=== PATIENT | male | born 1960 | race African-American/Black ===

== ENCOUNTER 2023-07-09 07:47 | Inpatient (IN) | payer BC ==
[~2023-07-09] VITALS: Ht 180.3 cm; Wt 102.4 kg
[2023-07-09] MEDS ORDERED: KETOROLAC TROMETH 30 MG/ML 1ML VIAL IV ONE (08:15)
[2023-07-09] MEDS ORDERED: ONDANSETRON HCL 4 MG/2 ML VIAL IV ONE (08:15)
[2023-07-09] MEDS ORDERED: DICYCLOMINE HCL (10MG/ML) 2 ML AMPULE IM ONE (08:15)
[2023-07-09] MEDS ORDERED: SODIUM CHLORIDE 0.9% 1,000 ML IV ONE ×2 (08:15→10:30)
[2023-07-09 08:38] LABS: Basophils # (auto) 0.1 10 ^3/uL (0-0.2); Basophils % (auto) 0.4 % (0.0-2.0); Eosinophils # (auto) 0 10 ^3/uL (0-0.8); Eosinophils % (auto) 0.3 % (0.0-7.0); Hemoglobin 14.8 g/dL (13.5-17.5); Lymphocytes # (auto) 1.8 10 ^3/uL (0.4-5.4); Lymphocytes % (auto) 12.6 % (10.0-50.0); Mean Corpuscular Hemoglobin 29.9 pg (28.0-32.0); Mean Corpuscular Hgb Conc. 33.6 g/dL (32.0-36.0); Mean Corpuscular Volume 89.1 fL (80.0-100.0); Monocytes # (auto) 0.8 10 ^3/uL (0-1.3); Monocytes % (auto) 5.8 % (0.0-12.0); Neutrophils # (auto) 11.4 10 ^3/uL (1.6-8.6); Neutrophils % (auto) 80.9 % (37.0-80.0); Nucleated Red Blood Cells % 0.1 %; Red Blood Cells 4.93 10^6/uL (4.5-5.90); Red Cell Distribution Width 13.6 % (11.8-14.3); White Blood Cell 14.1 10^3/uL (4.4-10.8)
[2023-07-09] MEDS ORDERED: PIPERACILLIN-TAZO 4.5GM 100 ML IV ONE (09:00)
[2023-07-09] MEDS ORDERED: metroNIDAZOLE 500MG/100ML 100 ML IV ONE (09:00)
[2023-07-09 09:04] LABS: Albumin 3.8 g/dL (3.4-5.0); Calcium 9.1 mg/dL (8.5-10.1); Magnesium 2.1 mg/dL (1.6-2.6); Potassium 4.1 mmol/L (3.5-5.1)
[2023-07-09 09:07] LABS: BUN/Creatinine Ratio 5.9 (10.0-20.0); Bilirubin, Total 0.8 mg/dL (0.2-1.0); Total Protein 7.3 g/dL (6.4-8.2)
[2023-07-09 09:12] LABS: Urine Bacteria NONE SEEN /hpf (None Seen); Urine Blood Negative /uL (Negative); Urine Clarity Clear (Clear); Urine Color Yellow (Yellow); Urine Mucus FEW (None Seen); Urine Protein, UAD TRACE (Negative); Urine Specific Gravity 1.025 (1.001-1.035); Urine WBC 1 /hpf (0 - 3)
[2023-07-09 09:43] VITALS: RESP 18; O2SAT 97
[2023-07-09] MEDS ORDERED: NITROGLYCERIN 0.4 MG SL TAB SL PRN (10:00)
[2023-07-09] MEDS ORDERED: MORPHINE SULFATE INJ 2 MG/ml SYRG IV PRN (10:00)
[2023-07-09] MEDS ORDERED: cefTRIAXone 1GM/50ML D5W 50 ML IV ONE (10:15)
[2023-07-09] MEDS ORDERED: SODIUM CHLORIDE 0.9% 1,000 ML IV SCH (10:30)
[2023-07-09] MEDS ORDERED: CEFEPIME 1GM/ 50ML 50 ML IV SCH (10:45)
[2023-07-09] MEDS ORDERED: CEFEPIME 1GM/ 50ML 50 ML IV ONE (10:45)
[2023-07-09] MEDS ORDERED: metroNIDAZOLE 500MG/100ML 100 ML IV SCH (10:45)
[2023-07-09 11:10] LABS: Alcohol, Urine < 3.0 mg/dL (0-10); Amphetamine Screen, Urine NEGATIVE (NEGATIVE); Barbiturate Scree,Urine NEGATIVE (NEGATIVE); Benzodiazephine Screen, Urine NEGATIVE (NEGATIVE); Cannabinoid Screen, Urine NEGATIVE (NEGATIVE); Cocaine Screen, Urine NEGATIVE (NEGATIVE); Opiate Scree,Urine NEGATIVE (NEGATIVE); Phencyclidine Screen, Urine NEGATIVE (NEGATIVE)
[2023-07-09 15:01] VITALS: PULSE 72; RESP 16; O2SAT 97
[2023-07-09] MEDS ORDERED: CELECOXIB 100 MG CAP ONE (16:08)
[2023-07-09] MEDS ORDERED: GABAPENTIN 300 MG CAP ONE (16:09)
[2023-07-09] MEDS ORDERED: ACETAMINOPHEN IV 100 ML IV ONE (16:09)
[2023-07-09] MEDS ORDERED: PROPOFOL 10 MG/ML 20 ML IV ONE (16:15)
[2023-07-09] MEDS ORDERED: ACETAMINOPHEN IV 1000 MG/100ML (10MG/ML) IV ONE (16:15)
[2023-07-09] MEDS ORDERED: GABAPENTIN 300 MG CAP PO ONE (16:15)
[2023-07-09] MEDS ORDERED: CELECOXIB 100 MG CAP PO ONE (16:15)
[2023-07-09] MEDS ORDERED: LIDOCAINE 2% (LOCAL ANESTH.) PF 5ml SDV ONE (16:16)
[2023-07-09] MEDS ORDERED: GLYCOPYRROLATE 0.2 MG/ML 1ML VIAL ONE (16:16)
[2023-07-09] MEDS ORDERED: KETOROLAC TROMETH 30 MG/ML 1ML VIAL ONE (16:16)
[2023-07-09] MEDS ORDERED: DexAMETHasone SOD PHOS 10MG/1ML VIAL INJ ONE ×2 (16:16→16:41)
[2023-07-09] MEDS ORDERED: ONDANSETRON HCL 4 MG/2 ML VIAL ONE (16:16)
[2023-07-09] MEDS ORDERED: BUPIVACAINE W/ EPINEPH 0.5% INJ 50ML MDV IJ ONE (16:20)
[2023-07-09] MEDS ORDERED: BUPIVACAINE HCL 50 ML ONE (16:20)
[2023-07-09] MEDS ORDERED: SODIUM CHLORIDE LOCK 30 ML ONE (16:52)
[2023-07-09] MEDS ORDERED: PHENYLEPHRINE HCL 10 MG/ML VL ONE (16:52)
[2023-07-09] MEDS ORDERED: fentaNYL CITRATE 100 MCG/2 ML VL ONE (17:27)
[2023-07-09] MEDS ORDERED: SUGAMMADEX 200mg/2ml Vial (100MG/ML) IV ONE (17:27)
[2023-07-09] MEDS ORDERED: ROCURONIUM 10MG/ML 10ML VIAL IV ONE (17:38)
[2023-07-09] MEDS ORDERED: ESMOLOL HCL 10 ML IV ONE (17:38)
[2023-07-09] MEDS ORDERED: hydrALAZINE HCL 20 MG/ML VL IV PRN (19:30)
[2023-07-09] MEDS ORDERED: LABETALOL HCL 5 MG/ML 4ML SYRINGE IV PRN (19:30)
[2023-07-09] MEDS ORDERED: ONDANSETRON HCL 4 MG/2 ML VIAL IV PRN (19:30)
[2023-07-09] MEDS ORDERED: oxyCODONE HCL 5MG TAB PO PRN (19:30)
[2023-07-09] MEDS ORDERED: HYDROmorphone HCL 2 MG/ML VL/or syr IV PRN (19:30)
[2023-07-09] MEDS ORDERED: fentaNYL CITRATE 100 MCG/2 ML VL IV PRN (19:30)
[2023-07-09] MEDS ORDERED: ePHEDrine SULFATE 50 MG/ML AMP IV PRN (19:30)
[2023-07-09] MEDS ORDERED: FLUMAZENIL 0.1 MG/ML INJ 10ML MDV IV PRN (19:30)
[2023-07-09] MEDS ORDERED: NALOXONE HCL 0.4 MG/ML VIAL IV PRN (19:30)
[2023-07-09 20:43] VITALS: BP 154/83; PULSE 85; RESP 19; TEMP 97.5; O2SAT 93
[2023-07-09] MEDS ORDERED: LOS25T (20:43)
[2023-07-09] MEDS ORDERED: FENO160T (20:43)
[2023-07-09] MEDS ORDERED: ASPI-325 (20:43)
[2023-07-09] MEDS ORDERED: METF-370 (20:43)
[2023-07-10 05:00] VITALS: BP 126/82; PULSE 90; RESP 18; TEMP 98; O2SAT 93
[2023-07-10 06:12] LABS: Basophils # (auto) 0 10 ^3/uL (0-0.2); Eosinophils # (auto) 0 10 ^3/uL (0-0.8); Hematocrit 40.2 % (41.0-53.0); Hemoglobin 13.5 g/dL (13.5-17.5); Mean Corpuscular Hemoglobin 29.9 pg (28.0-32.0); Mean Corpuscular Hgb Conc. 33.7 g/dL (32.0-36.0); Mean Corpuscular Volume 88.8 fL (80.0-100.0); Monocytes # (auto) 0.5 10 ^3/uL (0-1.3); Monocytes % (auto) 3.7 % (0.0-12.0); Neutrophils # (auto) 12.4 10 ^3/uL (1.6-8.6); Neutrophils % (auto) 89.3 % (37.0-80.0); Red Blood Cells 4.52 10^6/uL (4.5-5.90); Red Cell Distribution Width 13.6 % (11.8-14.3); White Blood Cell 13.9 10^3/uL (4.4-10.8)
[2023-07-10 06:41] LABS: Potassium 4.6 mmol/L (3.5-5.1)
[2023-07-10 06:46] LABS: Albumin 3.2 g/dL (3.4-5.0); BUN/Creatinine Ratio 8.9 (10.0-20.0); Calcium 8.4 mg/dL (8.7-10.4)
[2023-07-10 06:49] LABS: Total Protein 6.5 g/dL (6.4-8.2)
[2023-07-10] MEDS ORDERED: metroNIDAZOLE 500MG/100ML 100 ML IV ONE (08:00)
[2023-07-10] MEDS ORDERED: CEFEPIME 1GM/ 50ML 50 ML IV ONE (08:00)
[2023-07-10] MEDS ORDERED: DEXTROSE (50%) 50ML SYRG IV PRN (08:15)
[2023-07-10] MEDS ORDERED: metroNIDAZOLE 500MG/100ML 100 ML IV SCH (09:00)
[2023-07-10] MEDS ORDERED: cefTRIAXone 1GM/50ML D5W 50 ML IV SCH (09:00)
[2023-07-10 09:08] LABS: Bilirubin, Total 0.5 mg/dL (0.2-1.0)
[2023-07-10] MEDS: ACCU-CHEK COMFORT CURVE STRIP VI SCH ×2 (12:43→17:19)
[2023-07-10] MEDS: InsuLIN REG 1unit/0.01ml Soln (100units/ml) SC SCH ×3 (12:45→23:48)
[2023-07-10 13:00] VITALS: BP 117/71; PULSE 84; RESP 16; TEMP 98.8; O2SAT 95
[2023-07-10] MEDS: metroNIDAZOLE 500MG/100ML 100 ML IV SCH ×2 (15:00→21:19)
[2023-07-10 16:38] VITALS: BP 143/88; PULSE 83; RESP 18; TEMP 98.7; O2SAT 98
[2023-07-10] MEDS: HYDROmorphone HCL 2 MG/ML VL/or syr IV PRN (17:06)
[2023-07-10] MEDS: CEFEPIME 1GM/ 50ML 50 ML IV SCH (17:19)
[2023-07-10] MEDS: SODIUM CHLORIDE 0.9% 1,000 ML IV SCH (18:30)
[2023-07-10 20:17] VITALS: RESP 17
[2023-07-10 22:00] VITALS: BP 107/50; PULSE 82; RESP 17; TEMP 98.5; O2SAT 94
[2023-07-11] MEDS: ACCU-CHEK COMFORT CURVE STRIP VI SCH ×5 (00:04→23:26)
[2023-07-11] MEDS: CEFEPIME 1GM/ 50ML 50 ML IV SCH ×4 (00:04→23:24)
[2023-07-11] MEDS: metroNIDAZOLE 500MG/100ML 100 ML IV SCH ×3 (04:56→20:05)
[2023-07-11 05:00] VITALS: BP 119/71; PULSE 85; RESP 19; TEMP 98.8; O2SAT 98
[2023-07-11] MEDS: InsuLIN REG 1unit/0.01ml Soln (100units/ml) SC SCH ×3 (05:20→18:22)
[2023-07-11 05:59] LABS: Basophils # (auto) 0 10 ^3/uL (0-0.2); Basophils % (auto) 0.2 % (0.0-2.0); Eosinophils # (auto) 0 10 ^3/uL (0-0.8); Eosinophils % (auto) 0.2 % (0.0-7.0); Hematocrit 39.3 % (41.0-53.0); Hemoglobin 13.2 g/dL (13.5-17.5); Lymphocytes # (auto) 1.8 10 ^3/uL (0.4-5.4); Lymphocytes % (auto) 17.3 % (10.0-50.0); Mean Corpuscular Hgb Conc. 33.7 g/dL (32.0-36.0); Mean Corpuscular Volume 88.9 fL (80.0-100.0); Monocytes # (auto) 0.8 10 ^3/uL (0-1.3); Monocytes % (auto) 7.5 % (0.0-12.0); Neutrophils # (auto) 7.6 10 ^3/uL (1.6-8.6); Neutrophils % (auto) 74.8 % (37.0-80.0); Red Blood Cells 4.42 10^6/uL (4.5-5.90); Red Cell Distribution Width 13.5 % (11.8-14.3); White Blood Cell 10.2 10^3/uL (4.4-10.8)
[2023-07-11 06:26] LABS: Alanine Aminotransferase 23 U/L (7-40); Alkaline Phosphatase 47 U/L (46-116); Anion Gap 8.4 (5-15); BUN/Creatinine Ratio 12.2 (10.0-20.0); Blood Urea Nitrogen 14 mg/dL (9-23); Calcium 8.8 mg/dL (8.7-10.4); Carbon Dioxide 26.6 mmol/L (20-30); Chloride 102 mmol/L (98-107); Glucose 147 mg/dL (74-106); Potassium 3.9 mmol/L (3.5-5.1); Sodium 137 mmol/L (136-145)
[2023-07-11 06:27] LABS: Albumin 3.6 g/dL (3.2-4.8); Aspartate Aminotransferase 24 U/L (13-40); Bilirubin, Total 0.7 mg/dL (0.2-1.0); Total Protein 6.2 g/dL (5.7-8.2)
[2023-07-11] MEDS: SODIUM CHLORIDE 0.9% 1,000 ML IV SCH ×2 (07:50→20:05)
[2023-07-11 08:00] VITALS: PULSE 88; RESP 8
[2023-07-11] MEDS: HYDROmorphone HCL 2 MG/ML VL/or syr IV PRN ×4 (08:23→23:24)
[2023-07-11 09:00] VITALS: BP 122/60; PULSE 75; RESP 17; TEMP 98.2; O2SAT 92
[2023-07-11 13:00] VITALS: BP 125/77; PULSE 92; RESP 17; TEMP 98.8; O2SAT 99
[2023-07-11 17:00] VITALS: BP 135/77; PULSE 96; RESP 18; TEMP 99.4; O2SAT 97
[2023-07-11 22:00] VITALS: BP 156/87; PULSE 89; RESP 22; TEMP 97.6; O2SAT 98
[2023-07-12] MEDS: ONDANSETRON HCL 4 MG/2 ML VIAL IV PRN ×2 (00:41→20:18)
[2023-07-12] MEDS: InsuLIN REG 1unit/0.01ml Soln (100units/ml) SC SCH ×4 (00:44→17:45)
[2023-07-12 05:00] VITALS: BP 149/83; PULSE 94; RESP 20; TEMP 97.7; O2SAT 96
[2023-07-12] MEDS: ACCU-CHEK COMFORT CURVE STRIP VI SCH ×4 (05:09→23:57)
[2023-07-12] MEDS: metroNIDAZOLE 500MG/100ML 100 ML IV SCH ×3 (05:10→21:47)
[2023-07-12] MEDS: HYDROmorphone HCL 2 MG/ML VL/or syr IV PRN ×3 (06:08→20:18)
[2023-07-12 08:00] VITALS: BP 99/60; PULSE 80; PULSE 92; RESP 17; TEMP 98.8; O2SAT 98
[2023-07-12 08:08] LABS: Basophils # (auto) 0 10 ^3/uL (0-0.2); Basophils % (auto) 0.1 % (0.0-2.0); Eosinophils # (auto) 0.1 10 ^3/uL (0-0.8); Eosinophils % (auto) 0.5 % (0.0-7.0); Hematocrit 41.7 % (41.0-53.0); Hemoglobin 13.9 g/dL (13.5-17.5); Lymphocytes # (auto) 1.6 10 ^3/uL (0.4-5.4); Mean Corpuscular Hemoglobin 29.8 pg (28.0-32.0); Mean Corpuscular Hgb Conc. 33.3 g/dL (32.0-36.0); Mean Corpuscular Volume 89.7 fL (80.0-100.0); Monocytes # (auto) 1.1 10 ^3/uL (0-1.3); Monocytes % (auto) 10.5 % (0.0-12.0); Neutrophils # (auto) 7.5 10 ^3/uL (1.6-8.6); Neutrophils % (auto) 72.9 % (37.0-80.0); Nucleated Red Blood Cells % 0.1 %; Red Blood Cells 4.65 10^6/uL (4.5-5.90); Red Cell Distribution Width 13.5 % (11.8-14.3); White Blood Cell 10.3 10^3/uL (4.4-10.8)
[2023-07-12 08:38] LABS: Alanine Aminotransferase 17 U/L (7-40); Alkaline Phosphatase 46 U/L (46-116); Anion Gap 5.5 (5-15); Aspartate Aminotransferase 23 U/L (13-40); BUN/Creatinine Ratio 7.4 (10.0-20.0); Blood Urea Nitrogen 7 mg/dL (9-23); Calcium 8.7 mg/dL (8.5-10.1); Carbon Dioxide 27.5 mmol/L (20-30); Chloride 103 mmol/L (98-107); Glucose 130 mg/dL (74-106); Potassium 3.9 mmol/L (3.5-5.1); Sodium 136 mmol/L (136-145)
[2023-07-12 08:39] LABS: Albumin 3.6 g/dL (3.2-4.8); Bilirubin, Total 0.6 mg/dL (0.2-1.0); Total Protein 6.4 g/dL (5.7-8.2)
[2023-07-12] MEDS: CEFEPIME 1GM/ 50ML 50 ML IV SCH ×3 (09:37→17:40)
[2023-07-12] MEDS: SODIUM CHLORIDE 0.9% 1,000 ML IV SCH ×2 (10:30→23:57)
[2023-07-12 12:00] VITALS: BP 126/74; PULSE 93; RESP 20; TEMP 98; O2SAT 96
[2023-07-12 16:00] VITALS: BP 132/67; PULSE 77; RESP 21; TEMP 98.5; O2SAT 93
[2023-07-12 20:00] VITALS: PULSE 95; RESP 18
[2023-07-12 22:00] VITALS: BP 122/81; PULSE 100; RESP 19; TEMP 98.6; O2SAT 92
[2023-07-13] MEDS: CEFEPIME 1GM/ 50ML 50 ML IV SCH ×2 (00:02→09:24)
[2023-07-13] MEDS: InsuLIN REG 1unit/0.01ml Soln (100units/ml) SC SCH ×5 (00:21→23:37)
[2023-07-13 05:00] VITALS: BP 129/81; PULSE 92; RESP 19; TEMP 99; O2SAT 98
[2023-07-13] MEDS: metroNIDAZOLE 500MG/100ML 100 ML IV SCH (06:13)
[2023-07-13] MEDS: ACCU-CHEK COMFORT CURVE STRIP VI SCH ×4 (06:17→23:30)
[2023-07-13 06:42] LABS: Basophils # (auto) 0 10 ^3/uL (0-0.2); Basophils % (auto) 0.3 % (0.0-2.0); Eosinophils # (auto) 0.3 10 ^3/uL (0-0.8); Eosinophils % (auto) 3.5 % (0.0-7.0); Hematocrit 41.4 % (41.0-53.0); Hemoglobin 13.9 g/dL (13.5-17.5); Lymphocytes # (auto) 1.9 10 ^3/uL (0.4-5.4); Lymphocytes % (auto) 20.9 % (10.0-50.0); Mean Corpuscular Hemoglobin 30.3 pg (28.0-32.0); Mean Corpuscular Hgb Conc. 33.4 g/dL (32.0-36.0); Mean Corpuscular Volume 90.5 fL (80.0-100.0); Monocytes # (auto) 0.9 10 ^3/uL (0-1.3); Monocytes % (auto) 10.2 % (0.0-12.0); Neutrophils # (auto) 5.8 10 ^3/uL (1.6-8.6); Neutrophils % (auto) 65.1 % (37.0-80.0); Red Blood Cells 4.58 10^6/uL (4.5-5.90); Red Cell Distribution Width 13.4 % (11.8-14.3)
[2023-07-13 06:46] LABS: Alanine Aminotransferase 17 U/L (7-40); Albumin 3.6 g/dL (3.2-4.8); Alkaline Phosphatase 46 U/L (46-116); Anion Gap 7.1 (5-15); Aspartate Aminotransferase 19 U/L (13-40); BUN/Creatinine Ratio 7.3 (10.0-20.0); Bilirubin, Total 0.6 mg/dL (0.2-1.0); Blood Urea Nitrogen 7 mg/dL (9-23); Calcium 8.7 mg/dL (8.5-10.1); Carbon Dioxide 27.9 mmol/L (20-30); Chloride 102 mmol/L (98-107); Glucose 126 mg/dL (74-106); Potassium 3.7 mmol/L (3.5-5.1); Sodium 137 mmol/L (136-145); Total Protein 6.5 g/dL (5.7-8.2)
[2023-07-13] MEDS ORDERED: CLINIMIX PER PHARMACY 0 ML IV SCH (08:30)
[2023-07-13 09:00] VITALS: BP 124/74; PULSE 97; RESP 18; TEMP 97.9; O2SAT 95
[2023-07-13 09:27] LABS: Phosphorus 2.5 mg/dL (2.4-5.1)
[2023-07-13 13:00] VITALS: BP 134/80; PULSE 83; RESP 16; TEMP 98.2; O2SAT 96
[2023-07-13] MEDS: SODIUM CHLORIDE 0.9% 1,000 ML IV SCH (13:10)
[2023-07-13] MEDS: ERTAPENEM SOD INJ 1 GM in SODIUM CHL 0.9% 50 ML IV SCH (15:49)
[2023-07-13 17:00] VITALS: BP 120/68; PULSE 83; RESP 16; TEMP 98.5; O2SAT 96
[2023-07-13] MEDS ORDERED: AMINO ACID INFUSION IN D10W 1,000 ML IV NR (20:00)
[2023-07-13 22:00] VITALS: BP 123/79; PULSE 8; PULSE 82; RESP 17; RESP 82; TEMP 99.4; O2SAT 97
[2023-07-14 00:06] LABS: Vitamin D, 25-Hydroxy 58.3 ng/mL (30.0-100.0)
[2023-07-14] MEDS: SODIUM CHLORIDE 0.9% 1,000 ML IV SCH ×2 (02:20→15:50)
[2023-07-14 05:00] VITALS: BP 113/68; PULSE 41; PULSE 72; RESP 18; TEMP 98.7; O2SAT 92
[2023-07-14] MEDS: ACCU-CHEK COMFORT CURVE STRIP VI SCH ×4 (06:11→23:36)
[2023-07-14] MEDS: InsuLIN REG 1unit/0.01ml Soln (100units/ml) SC SCH ×4 (06:12→23:40)
[2023-07-14 08:00] VITALS: BP 116/79; PULSE 91; RESP 18; TEMP 98.6; O2SAT 100
[2023-07-14 08:30] VITALS: BP 116/79; PULSE 91; RESP 18; TEMP 98.6; O2SAT 100
[2023-07-14 08:42] LABS: Basophils # (auto) 0 10 ^3/uL (0-0.2); Basophils % (auto) 0.4 % (0.0-2.0); Eosinophils # (auto) 0.2 10 ^3/uL (0-0.8); Eosinophils % (auto) 2.7 % (0.0-7.0); Hematocrit 41.5 % (41.0-53.0); Lymphocytes # (auto) 1.6 10 ^3/uL (0.4-5.4); Lymphocytes % (auto) 20.2 % (10.0-50.0); Mean Corpuscular Hemoglobin 29.8 pg (28.0-32.0); Mean Corpuscular Hgb Conc. 33.7 g/dL (32.0-36.0); Mean Corpuscular Volume 88.5 fL (80.0-100.0); Monocytes # (auto) 0.8 10 ^3/uL (0-1.3); Monocytes % (auto) 10.1 % (0.0-12.0); Neutrophils # (auto) 5.4 10 ^3/uL (1.6-8.6); Neutrophils % (auto) 66.6 % (37.0-80.0); Red Blood Cells 4.69 10^6/uL (4.5-5.90); Red Cell Distribution Width 13.2 % (11.8-14.3); White Blood Cell 8.1 10^3/uL (4.4-10.8)
[2023-07-14 09:08] LABS: Alanine Aminotransferase 15 U/L (7-40); Albumin 3.5 g/dL (3.2-4.8); Alkaline Phosphatase 44 U/L (46-116); Anion Gap 3.8 (5-15); Aspartate Aminotransferase 11 U/L (13-40); Bilirubin, Total 0.5 mg/dL (0.2-1.0); Blood Urea Nitrogen 6 mg/dL (9-23); Calcium 8.8 mg/dL (8.5-10.1); Carbon Dioxide 27.2 mmol/L (20-30); Chloride 105 mmol/L (98-107); GFR African American 116 mL/min; GFR Non-African American 96 mL/min; Glucose 158 mg/dL (74-106); Potassium 3.7 mmol/L (3.5-5.1); Sodium 136 mmol/L (136-145); Total Protein 6.4 g/dL (5.7-8.2)
[2023-07-14 09:16] LABS: CRP High Sensitivity 4.65 mg/dL (<1.0)
[2023-07-14] MEDS ORDERED: SODIUM PHOSPHATES 24 MEQ in SODIUM CHL 0.9% 100 ML IV ONE (11:00)
[2023-07-14] MEDS ORDERED: ENOXAPARIN SOD 40 MG/0.4 ML SYRINGE SC ONE (11:15)
[2023-07-14 12:00] VITALS: BP 114/82; PULSE 86; RESP 18; TEMP 98.1; O2SAT 99
[2023-07-14] MEDS: ERTAPENEM SOD INJ 1 GM in SODIUM CHL 0.9% 50 ML IV SCH (15:18)
[2023-07-14 16:00] VITALS: BP 145/85; PULSE 88; RESP 16; TEMP 98; O2SAT 96
[2023-07-14] MEDS ORDERED: AMINO ACID INFUSION IN D10W 1,000 ML IV NR (20:00)
[2023-07-14 22:00] VITALS: BP 119/79; PULSE 95; RESP 16; TEMP 98.8; O2SAT 97
[2023-07-15 05:00] VITALS: BP 116/56; PULSE 78; RESP 16; TEMP 99; O2SAT 94
[2023-07-15] MEDS: SODIUM CHLORIDE 0.9% 1,000 ML IV SCH ×2 (05:03→19:05)
[2023-07-15] MEDS: ACCU-CHEK COMFORT CURVE STRIP VI SCH ×3 (05:43→19:11)
[2023-07-15] MEDS: InsuLIN REG 1unit/0.01ml Soln (100units/ml) SC SCH ×3 (05:46→19:12)
[2023-07-15 07:27] LABS: Basophils # (auto) 0.1 10 ^3/uL (0-0.2); Basophils % (auto) 0.6 % (0.0-2.0); Eosinophils # (auto) 0.3 10 ^3/uL (0-0.8); Hematocrit 39.4 % (41.0-53.0); Hemoglobin 13.4 g/dL (13.5-17.5); Lymphocytes # (auto) 2.5 10 ^3/uL (0.4-5.4); Lymphocytes % (auto) 23.2 % (10.0-50.0); Mean Corpuscular Hgb Conc. 34.1 g/dL (32.0-36.0); Mean Corpuscular Volume 87.9 fL (80.0-100.0); Monocytes # (auto) 1.1 10 ^3/uL (0-1.3); Monocytes % (auto) 10.3 % (0.0-12.0); Neutrophils # (auto) 6.7 10 ^3/uL (1.6-8.6); Neutrophils % (auto) 62.9 % (37.0-80.0); Nucleated Red Blood Cells % 0.2 %; Red Blood Cells 4.48 10^6/uL (4.5-5.90); Red Cell Distribution Width 13.5 % (11.8-14.3); White Blood Cell 10.6 10^3/uL (4.4-10.8)
[2023-07-15 07:33] LABS: INR 1.18 (0.9-1.15); Partial Thromboplastin Time 33.7 SEC (24.5-34.5); Prothrombin Time 12.3 sec (9.3-11.8)
[2023-07-15 08:05] VITALS: PULSE 79; RESP 17; O2SAT 98
[2023-07-15 08:19] LABS: Alanine Aminotransferase 15 U/L (7-40); Albumin 3.4 g/dL (3.2-4.8); Alkaline Phosphatase 47 U/L (46-116); Anion Gap 5.8 (5-15); Aspartate Aminotransferase 13 U/L (13-40); BUN/Creatinine Ratio 5.5 (10.0-20.0); Bilirubin, Total 0.5 mg/dL (0.2-1.0); Blood Urea Nitrogen 6 mg/dL (9-23); Calcium 8.8 mg/dL (8.5-10.1); Carbon Dioxide 26.2 mmol/L (20-30); Chloride 103 mmol/L (98-107); Glucose 153 mg/dL (74-106); Magnesium 1.9 mg/dL (1.6-2.6); Phosphorus 3.4 mg/dL (2.4-5.1); Potassium 3.7 mmol/L (3.5-5.1); Sodium 135 mmol/L (136-145); Total Protein 6.2 g/dL (5.7-8.2)
[2023-07-15 09:00] VITALS: BP 106/63; PULSE 79; RESP 17; TEMP 98.6; O2SAT 98
[2023-07-15] MEDS: ENOXAPARIN SOD 40 MG/0.4 ML SYRINGE SC SCH (10:30)
[2023-07-15 13:10] VITALS: BP 122/72; PULSE 101; RESP 20; TEMP 97.7; O2SAT 97
[2023-07-15] MEDS: ERTAPENEM SOD INJ 1 GM in SODIUM CHL 0.9% 50 ML IV SCH (15:23)
[2023-07-15 17:00] VITALS: BP 128/77; PULSE 51; RESP 19; TEMP 97.8; O2SAT 96
[2023-07-15 22:00] VITALS: BP 110/67; PULSE 96; RESP 14; TEMP 99.2; O2SAT 95
[2023-07-16] MEDS: ACCU-CHEK COMFORT CURVE STRIP VI SCH ×5 (00:05→23:58)
[2023-07-16] MEDS: InsuLIN REG 1unit/0.01ml Soln (100units/ml) SC SCH ×4 (00:11→18:00)
[2023-07-16 05:00] VITALS: BP 126/72; PULSE 78; RESP 16; TEMP 98.5; O2SAT 96
[2023-07-16] MEDS: SODIUM CHLORIDE 0.9% 1,000 ML IV SCH ×2 (06:03→23:58)
[2023-07-16 08:00] VITALS: PULSE 63; RESP 18
[2023-07-16 09:00] VITALS: BP 102/58; PULSE 87; RESP 22; TEMP 98.4; O2SAT 97
[2023-07-16] MEDS: ENOXAPARIN SOD 40 MG/0.4 ML SYRINGE SC SCH (09:33)
[2023-07-16 12:30] VITALS: BP 119/59; PULSE 91; RESP 20; TEMP 98.1; O2SAT 96
[2023-07-16] MEDS: ERTAPENEM SOD INJ 1 GM in SODIUM CHL 0.9% 50 ML IV SCH (15:00)
[2023-07-16 16:27] VITALS: BP 122/84; PULSE 68; RESP 20; TEMP 97.9; O2SAT 99
[2023-07-16 22:00] VITALS: BP 110/61; PULSE 89; RESP 18; TEMP 98.4; O2SAT 97
[2023-07-17] MEDS: InsuLIN REG 1unit/0.01ml Soln (100units/ml) SC SCH ×3 (00:01→12:07)
[2023-07-17 05:00] VITALS: BP 109/70; PULSE 80; TEMP 98.5; O2SAT 16
[2023-07-17] MEDS: ACCU-CHEK COMFORT CURVE STRIP VI SCH ×2 (05:27→11:54)
[2023-07-17 05:54] LABS: Basophils # (auto) 0.1 10 ^3/uL (0-0.2); Basophils % (auto) 0.7 % (0.0-2.0); Eosinophils # (auto) 0.2 10 ^3/uL (0-0.8); Eosinophils % (auto) 2.6 % (0.0-7.0); Hematocrit 37.4 % (41.0-53.0); Hemoglobin 12.4 g/dL (13.5-17.5); Lymphocytes # (auto) 2.2 10 ^3/uL (0.4-5.4); Lymphocytes % (auto) 24.6 % (10.0-50.0); Mean Corpuscular Hemoglobin 29.3 pg (28.0-32.0); Mean Corpuscular Hgb Conc. 33.1 g/dL (32.0-36.0); Mean Corpuscular Volume 88.6 fL (80.0-100.0); Monocytes # (auto) 0.9 10 ^3/uL (0-1.3); Monocytes % (auto) 9.9 % (0.0-12.0); Neutrophils # (auto) 5.6 10 ^3/uL (1.6-8.6); Neutrophils % (auto) 62.2 % (37.0-80.0); Red Blood Cells 4.22 10^6/uL (4.5-5.90); Red Cell Distribution Width 13.4 % (11.8-14.3)
[2023-07-17 06:07] LABS: Alanine Aminotransferase 12 U/L (7-40); Albumin 3.2 g/dL (3.2-4.8); Alkaline Phosphatase 51 U/L (46-116); Anion Gap 4.3 (5-15); Aspartate Aminotransferase 9 U/L (13-40); BUN/Creatinine Ratio 7.5 (10.0-20.0); Blood Urea Nitrogen 7 mg/dL (9-23); Calcium 8.6 mg/dL (8.5-10.1); Carbon Dioxide 26.7 mmol/L (20-30); Chloride 106 mmol/L (98-107); Glucose 121 mg/dL (74-106); Potassium 3.8 mmol/L (3.5-5.1); Sodium 137 mmol/L (136-145)
[2023-07-17 06:08] LABS: Bilirubin, Total 0.5 mg/dL (0.2-1.0); Total Protein 5.8 g/dL (5.7-8.2)
[2023-07-17 08:00] VITALS: PULSE 65; RESP 18; O2SAT 97
[2023-07-17 08:37] VITALS: BP 104/49; PULSE 45; RESP 17; TEMP 98.3; O2SAT 96
[2023-07-17] MEDS: ENOXAPARIN SOD 40 MG/0.4 ML SYRINGE SC SCH (09:21)
[2023-07-17] MEDS: SODIUM CHLORIDE 0.9% 1,000 ML IV SCH (09:32)
[2023-07-17 12:50] VITALS: BP 108/67; PULSE 80; RESP 16; TEMP 97.8; O2SAT 98
[2023-07-17] MEDS: ERTAPENEM SOD INJ 1 GM in SODIUM CHL 0.9% 50 ML IV SCH (16:12)
[2023-07-17 16:34] VITALS: TEMP 36.6
== END 2023-07-17 16:58 | disposition home health service (06) | DRG 331 ==
LOC: ER 07:47 → OVERFLOW 10:02 → EAST 20:15
PROVIDERS: ADMIT Internal Medicine; ATTEND Emergency Medicine
PROC: 0D1N0Z4 Bypass Sigmoid Colon to Cutaneous, Open Approach (ICD-10-PCS; 2023-07-09)
PROC: 0DTJ0ZZ Resection of Appendix, Open Approach (ICD-10-PCS; 2023-07-09)
PROC: 0DBN0ZZ Excision of Sigmoid Colon, Open Approach (ICD-10-PCS; principal; 2023-07-09 16:25)
PROC: 05HD33Z Insertion of Infusion Device into Right Cephalic Vein, Percutaneous Approach (ICD-10-PCS; 2023-07-15)
PROC: B54MZZA Ultrasonography of Right Upper Extremity Veins, Guidance (ICD-10-PCS; 2023-07-15)
DX: K57.40 Diverticulitis of both small and large intestine with perforation and abscess without bleeding (principal); K37 Unspecified appendicitis; E11.9 Type 2 diabetes mellitus without complications; I10 Essential (primary) hypertension; E66.9 Obesity, unspecified; K76.0 Fatty (change of) liver, not elsewhere classified; I25.10 Atherosclerotic heart disease of native coronary artery without angina pectoris; R00.0 Tachycardia, unspecified; Z68.31 Body mass index [BMI] 31.0-31.9, adult
CPT/HCPCS: 36415; 71045; 74176; 80053; 80069; 80307; 81001; 82306; 82607; 82962; 83036; 83690; 83735; 84100; 84443; 84478; 84484; 85025; 85610; 85730; 86141; 87040; 87070; 87075; 87076; 87077; 87186; 87205; 93005; 93306; 96361; 96374; 96375; 97110; 97116; 97163; 97530; G0378; J0131; J1100; J1335; J1815; J1885; J2001; J2405; J2543; J2704; J3490

== ENCOUNTER 2023-08-02 11:52 | Inpatient (IN) | payer BC ==
[~2023-08-02] VITALS: Ht 177.8 cm; Wt 91.0 kg
[~2023-08-02 11:52] MED LIST: ASPI-325; FENO160T; LOS25T; METF-370
[2023-08-02 13:06] VITALS: PULSE 87; RESP 18; O2SAT 97
[2023-08-02 13:15] LABS: Basophils # (auto) 0 10 ^3/uL (0-0.2); Basophils % (auto) 0.7 % (0.0-2.0); Eosinophils # (auto) 0.3 10 ^3/uL (0-0.8); Eosinophils % (auto) 3.8 % (0.0-7.0); Hemoglobin 13.4 g/dL (13.5-17.5); Lymphocytes # (auto) 2.3 10 ^3/uL (0.4-5.4); Lymphocytes % (auto) 32.7 % (10.0-50.0); Mean Corpuscular Hemoglobin 29.8 pg (28.0-32.0); Mean Corpuscular Hgb Conc. 33.5 g/dL (32.0-36.0); Monocytes # (auto) 0.5 10 ^3/uL (0-1.3); Monocytes % (auto) 6.8 % (0.0-12.0); Neutrophils # (auto) 3.9 10 ^3/uL (1.6-8.6); Nucleated Red Blood Cells % 0.1 %; Red Blood Cells 4.49 10^6/uL (4.5-5.90); Red Cell Distribution Width 13.3 % (11.8-14.3)
[2023-08-02 13:29] LABS: INR 1.09 (0.9-1.15); Partial Thromboplastin Time 31.9 SEC (24.5-34.5); Prothrombin Time 11.4 sec (9.3-11.8)
[2023-08-02 13:42] LABS: Alanine Aminotransferase 16 U/L (7-40); Alkaline Phosphatase 58 U/L (46-116); Anion Gap 5 (5-15); Aspartate Aminotransferase 11 U/L (13-40); Bilirubin, Total 0.3 mg/dL (0.2-1.0); Blood Urea Nitrogen 11 mg/dL (9-23); Calcium 10.1 mg/dL (8.7-10.4); Carbon Dioxide 27 mmol/L (20-30); Chloride 104 mmol/L (98-107); Glucose 100 mg/dL (74-106); Magnesium 1.8 mg/dL (1.6-2.6); Potassium 4.2 mmol/L (3.5-5.1); Sodium 136 mmol/L (136-145); Total Protein 7.1 g/dL (5.7-8.2)
[2023-08-02 14:55] LABS: Urine Bacteria FEW /hpf (None Seen); Urine Blood Negative /uL (Negative); Urine Clarity Clear (Clear); Urine Color Yellow (Yellow); Urine Mucus FEW (None Seen); Urine Protein, UAD Negative (Negative); Urine Specific Gravity 1.022 (1.001-1.035); Urine Urobilinogen Normal (Negative); Urine WBC 1 /hpf (0 - 3); Urine pH 5.5 (5.0-8.0)
[2023-08-02] MEDS ORDERED: IOHEXOL 350 MG/ML 100ML IJ ONE (15:48)
[2023-08-02] MEDS ORDERED: HEPARIN SODIUM (PORCINE) 5000 UNITS/ML 1ML VIAL IV ONE (17:00)
[2023-08-02] MEDS ORDERED: ONDANSETRON HCL 4 MG/2 ML VIAL IV PRN (17:30)
[2023-08-02] MEDS ORDERED: DOCUSATE SOD 100 MG CAP PO PRN (17:30)
[2023-08-02] MEDS ORDERED: MORPHINE SULFATE INJ 2 MG/ml SYRG IV PRN (17:30)
[2023-08-02] MEDS ORDERED: HEPARIN SODIUM (PORCINE) 5000 UNITS/ML 1ML VIAL ONE (17:32)
[2023-08-02] MEDS: HEPARIN DRIP/D5W 100UNITS/ML 250 ML IV SCH (17:35)
[2023-08-02 21:37] VITALS: PULSE 75; RESP 18; O2SAT 96
[2023-08-02 22:00] VITALS: BP_SYST 108; BP_SYST 111; BP_DIAS 62; BP_DIAS 70; PULSE 68; PULSE 78; RESP 18; TEMP 98; TEMP 98.2; O2SAT 100; O2SAT 94
[2023-08-03] VITALS (8 sets, daily range): BP systolic 100–120; BP diastolic 61–75; PULSE 67–85; RESP 18–19; TEMP 97.4–98.2; O2SAT 94–100
[2023-08-03 01:00] LABS: INR 1.14 (0.9-1.15); Prothrombin Time 11.9 sec (9.3-11.8)
[2023-08-03 01:21] LABS: Partial Thromboplastin Time 77.2 SEC (24.5-34.5)
[2023-08-03] MEDS: HEPARIN DRIP/D5W 100UNITS/ML 250 ML IV SCH (01:30)
[2023-08-03 07:44] LABS: Basophils # (auto) 0 10 ^3/uL (0-0.2); Basophils % (auto) 0.8 % (0.0-2.0); Eosinophils # (auto) 0.3 10 ^3/uL (0-0.8); Hematocrit 39.1 % (41.0-53.0); Hemoglobin 13.4 g/dL (13.5-17.5); Lymphocytes # (auto) 2.5 10 ^3/uL (0.4-5.4); Lymphocytes % (auto) 39.6 % (10.0-50.0); Mean Corpuscular Hgb Conc. 34.1 g/dL (32.0-36.0); Mean Corpuscular Volume 87.9 fL (80.0-100.0); Monocytes # (auto) 0.4 10 ^3/uL (0-1.3); Monocytes % (auto) 6.9 % (0.0-12.0); Neutrophils # (auto) 3.1 10 ^3/uL (1.6-8.6); Neutrophils % (auto) 48.7 % (37.0-80.0); Nucleated Red Blood Cells % 0.1 %; Red Blood Cells 4.45 10^6/uL (4.5-5.90); Red Cell Distribution Width 13.1 % (11.8-14.3); White Blood Cell 6.4 10^3/uL (4.4-10.8)
[2023-08-03 07:57] LABS: Alanine Aminotransferase 12 U/L (7-40); Albumin 3.8 g/dL (3.2-4.8); Alkaline Phosphatase 50 U/L (46-116); Anion Gap 4 (5-15); Aspartate Aminotransferase 14 U/L (13-40); BUN/Creatinine Ratio 8.4 (10.0-20.0); Bilirubin, Total 0.6 mg/dL (0.2-1.0); Blood Urea Nitrogen 9 mg/dL (9-23); Calcium 9.3 mg/dL (8.5-10.1); Carbon Dioxide 30 mmol/L (20-30); Chloride 104 mmol/L (98-107); Glucose 118 mg/dL (74-106); Potassium 3.9 mmol/L (3.5-5.1); Sodium 138 mmol/L (136-145)
[2023-08-03 08:19] LABS: INR 1.14 (0.9-1.15); Partial Thromboplastin Time 67.6 SEC (24.5-34.5); Prothrombin Time 11.9 sec (9.3-11.8)
[2023-08-03] MEDS ORDERED: MAGNESIUM SULFATE 1GM/100ML 100 ML IV ONE (09:30)
[2023-08-03] MEDS ORDERED: ASPirin-EC 81 mg tab PO SCH (10:00)
[2023-08-03] MEDS ORDERED: LOSARTAN POTASSIUM 25 MG TAB PO SCH (10:00)
[2023-08-03] MEDS: METOPROLOL TARTRATE 25 MG TAB PO SCH ×2 (10:20→21:57)
[2023-08-03] MEDS ORDERED: APIXABAN 5 MG TAB PO ONE (12:00)
[2023-08-03 14:15] LABS: % Iron Saturation 32.2 % (20-55)
[2023-08-03 14:19] LABS: Thyroid Stimulating Hormone 2.85 uIU/mL (0.55-4.78)
[2023-08-03] MEDS ORDERED: INSULIN LANTUS (GLARGINE) 1 /0.01ml (100units/ml) SC ONE (15:30)
[2023-08-03] MEDS ORDERED: DEXTROSE (50%) 50ML SYRG IV PRN (15:30)
[2023-08-03] MEDS: InsuLIN REG 1unit/0.01ml Soln (100units/ml) SC SCH ×2 (17:00→21:47)
[2023-08-03] MEDS: ACCU-CHEK COMFORT CURVE STRIP VI SCH ×2 (17:00→22:03)
[2023-08-03] MEDS: APIXABAN 5 MG TAB PO SCH (21:56)
[2023-08-03 23:03] LABS: Erythrocyte Sedimentation Rate 8 mm/hr (0-20)
[2023-08-04] VITALS (8 sets, daily range): BP systolic 95–136; BP diastolic 51–72; PULSE 61–91; RESP 16–19; TEMP 97.6–98.3; O2SAT 94–98
[2023-08-04 05:53] LABS: Basophils # (auto) 0 10 ^3/uL (0-0.2); Basophils % (auto) 0.6 % (0.0-2.0); Eosinophils # (auto) 0.4 10 ^3/uL (0-0.8); Eosinophils % (auto) 6.4 % (0.0-7.0); Hemoglobin 13.6 g/dL (13.5-17.5); Lymphocytes % (auto) 36.2 % (10.0-50.0); Mean Corpuscular Hemoglobin 29.3 pg (28.0-32.0); Mean Corpuscular Hgb Conc. 33.3 g/dL (32.0-36.0); Monocytes # (auto) 0.5 10 ^3/uL (0-1.3); Monocytes % (auto) 8.5 % (0.0-12.0); Neutrophils # (auto) 2.7 10 ^3/uL (1.6-8.6); Neutrophils % (auto) 48.3 % (37.0-80.0); Red Blood Cells 4.66 10^6/uL (4.5-5.90); Red Cell Distribution Width 13.6 % (11.8-14.3); White Blood Cell 5.6 10^3/uL (4.4-10.8)
[2023-08-04 06:05] LABS: Chloride 106 mmol/L (98-107); Potassium 4.3 mmol/L (3.5-5.1); Sodium 138 mmol/L (136-145)
[2023-08-04 06:06] LABS: Anion Gap 7 (5-15); Calcium 9.4 mg/dL (8.5-10.1); Carbon Dioxide 25 mmol/L (20-30)
[2023-08-04 06:11] LABS: BUN/Creatinine Ratio 11.8 (10.0-20.0); Blood Urea Nitrogen 12 mg/dL (9-23); Glucose 103 mg/dL (74-106); Triglycerides 93 mg/dL (< 150)
[2023-08-04 06:12] LABS: LDL Cholesterol 93 mg/dL (< 100); Magnesium 1.9 mg/dL (1.6-2.6)
[2023-08-04 06:13] LABS: Cholesterol 143 mg/dL (< 200); HDL Cholesterol 32 mg/dL (40-59)
[2023-08-04] MEDS: InsuLIN REG 1unit/0.01ml Soln (100units/ml) SC SCH ×4 (07:00→22:04)
[2023-08-04] MEDS: ACCU-CHEK COMFORT CURVE STRIP VI SCH ×4 (07:30→22:21)
[2023-08-04] MEDS ORDERED: INSULIN LANTUS (GLARGINE) 1 /0.01ml (100units/ml) SC SCH ×2 (10:00)
[2023-08-04] MEDS ORDERED: LOSARTAN POTASSIUM 50 MG TAB PO SCH (10:00)
[2023-08-04] MEDS ORDERED: MAGNESIUM OXIDE 400 MG TAB PO SCH (10:00)
[2023-08-04] MEDS: APIXABAN 5 MG TAB PO SCH ×2 (10:35→22:18)
[2023-08-04] MEDS: METOPROLOL TARTRATE 25 MG TAB PO SCH ×2 (10:36→22:19)
[2023-08-04] MEDS ORDERED: ATO40T PO (15:14)
[2023-08-04] MEDS ORDERED: METO25TA5 PO (15:14)
[2023-08-04] MEDS ORDERED: APIX5TAB PO ×4 (15:14→15:15)
[2023-08-04] MEDS ORDERED: ATORVASTATIN 20 MG TAB PO SCH (22:00)
[2023-08-05 05:20] VITALS: BP_SYST 109; BP_SYST 94; BP_DIAS 47; BP_DIAS 76; PULSE 64; PULSE 93; RESP 17; RESP 19; TEMP 97.9; O2SAT 92
[2023-08-05] MEDS: ACCU-CHEK COMFORT CURVE STRIP VI SCH (06:49)
[2023-08-05] MEDS: InsuLIN REG 1unit/0.01ml Soln (100units/ml) SC SCH (06:49)
[2023-08-05 09:00] VITALS: BP 106/60; PULSE 71; RESP 15; TEMP 98.2; O2SAT 100
== END 2023-08-05 10:30 | disposition home or self-care (01) | DRG 299 ==
LOC: ER 11:52 → TELE 17:21 → TELE-EAST 22:10
PROVIDERS: ADMIT Nurse Practitioner Family; ATTEND Internal Medicine Geriatric Medicine
DX: I82.432 Acute embolism and thrombosis of left popliteal vein (principal); I26.99 Other pulmonary embolism without acute cor pulmonale; R00.8 Other abnormalities of heart beat; I82.412 Acute embolism and thrombosis of left femoral vein; R00.1 Bradycardia, unspecified; I10 Essential (primary) hypertension; E11.9 Type 2 diabetes mellitus without complications; E78.5 Hyperlipidemia, unspecified; D64.9 Anemia, unspecified; E66.9 Obesity, unspecified; I25.10 Atherosclerotic heart disease of native coronary artery without angina pectoris; Z79.84 Long term (current) use of oral hypoglycemic drugs; Z93.3 Colostomy status; Z68.28 Body mass index [BMI] 28.0-28.9, adult; Z80.42 Family history of malignant neoplasm of prostate; Z82.49 Family history of ischemic heart disease and other diseases of the circulatory system; I25.2 Old myocardial infarction
CPT/HCPCS: 36415; 71045; 71275; 80048; 80053; 80061; 81001; 81241; 82728; 82962; 83540; 83550; 83615; 83735; 83880; 84443; 84484; 85025; 85045; 85301; 85302; 85305; 85306; 85379; 85610; 85652; 85730; 86141; 87081; 93005; 93306; 93970; 96365; 96375; 99291; G0378; J1815

== ENCOUNTER 2023-09-06 11:52 | Emergency (ER) | payer BC ==
[~2023-09-06] VITALS: Ht 177.8 cm; Wt 99.6 kg
[~2023-09-06 11:52] MED LIST changes: +APIX5TAB PO; +ATO40T PO; +METO25TA5 PO
[2023-09-06 12:17] VITALS: BP 138/69; RESP 18; O2SAT 97
[2023-09-06 12:29] VITALS: PULSE 96
[2023-09-06 13:13] LABS: Basophils # (auto) 0 10 ^3/uL (0-0.2); Basophils % (auto) 0.4 % (0.0-2.0); Eosinophils # (auto) 0.1 10 ^3/uL (0-0.8); Eosinophils % (auto) 1.9 % (0.0-7.0); Hematocrit 44.3 % (41.0-53.0); Hemoglobin 14.6 g/dL (13.5-17.5); Lymphocytes # (auto) 2.3 10 ^3/uL (0.4-5.4); Lymphocytes % (auto) 40.5 % (10.0-50.0); Mean Corpuscular Hemoglobin 29.4 pg (28.0-32.0); Mean Corpuscular Volume 89.1 fL (80.0-100.0); Monocytes # (auto) 0.4 10 ^3/uL (0-1.3); Neutrophils # (auto) 2.9 10 ^3/uL (1.6-8.6); Neutrophils % (auto) 50.2 % (37.0-80.0); Nucleated Red Blood Cells % 0.2 %; Red Blood Cells 4.97 10^6/uL (4.5-5.90); Red Cell Distribution Width 13.8 % (11.8-14.3); White Blood Cell 5.8 10^3/uL (4.4-10.8)
[2023-09-06 13:31] LABS: Alanine Aminotransferase 19 U/L (7-40); Albumin 4.3 g/dL (3.2-4.8); Alkaline Phosphatase 57 U/L (46-116); Anion Gap 8 (5-15); Aspartate Aminotransferase 11 U/L (13-40); BUN/Creatinine Ratio 7.1 (10.0-20.0); Blood Urea Nitrogen 8 mg/dL (9-23); Calcium 10.1 mg/dL (8.5-10.1); Carbon Dioxide 28 mmol/L (20-30); Chloride 104 mmol/L (98-107); Glucose 109 mg/dL (74-106); Potassium 4.3 mmol/L (3.5-5.1); Sodium 140 mmol/L (136-145)
[2023-09-06 13:32] LABS: Bilirubin, Total 0.7 mg/dL (0.2-1.0); Total Protein 7.4 g/dL (5.7-8.2)
[2023-09-06 14:03] LABS: Magnesium 1.7 mg/dL (1.6-2.6)
== END 2023-09-06 20:40 | disposition left against medical advice (07) ==
LOC: ER 11:52
DX: R00.1 Bradycardia, unspecified (principal); E11.9 Type 2 diabetes mellitus without complications; I10 Essential (primary) hypertension; Z90.89 Acquired absence of other organs
CPT/HCPCS: 36415; 71045; 80053; 83735; 84484; 85025; 93005

== ENCOUNTER → 2023-12-28 | Outpatient (CLI) | payer BC ==
[~2023-12-28] VITALS: Ht 177.8 cm; Wt 99.8 kg
[2023-12-28] MEDS: ADENOSINE 84 MG in GIVE UN-DILUTED 0 ML IV ONE (09:04)
== END | disposition home or self-care (01) ==
LOC: XYW 07:16
PROVIDERS: ATTEND Student in an Organized Health Care Education/Training Program
DX: I49.3 Ventricular premature depolarization (principal); I26.99 Other pulmonary embolism without acute cor pulmonale; I10 Essential (primary) hypertension; E78.5 Hyperlipidemia, unspecified; E11.65 Type 2 diabetes mellitus with hyperglycemia; Z86.718 Personal history of other venous thrombosis and embolism
CPT/HCPCS: 78452; 93017; A9500; J0153

== ENCOUNTER 2024-07-09 11:06 | Emergency (ER) | payer BC ==
[~2024-07-09] VITALS: Ht 177.8 cm; Wt 101.2 kg
[~2024-07-09 11:06] MED LIST changes: -ATO40T PO; +ATOR-507 PO
[2024-07-09] MEDS: SODIUM CHLORIDE 0.9% 1,000 ML IV ONE (12:18)
[2024-07-09 12:58] LABS: Basophils # (auto) 0.1 10 ^3/uL (0-0.2); Basophils % (auto) 0.7 % (0.0-2.0); Eosinophils # (auto) 0.1 10 ^3/uL (0-0.8); Eosinophils % (auto) 1.5 % (0.0-7.0); Hematocrit 39.3 % (41.0-53.0); Lymphocytes # (auto) 2.6 10 ^3/uL (0.4-5.4); Lymphocytes % (auto) 31.9 % (10.0-50.0); Monocytes # (auto) 0.4 10 ^3/uL (0-1.3); Monocytes % (auto) 4.7 % (0.0-12.0); Neutrophils # (auto) 4.9 10 ^3/uL (1.6-8.6); Neutrophils % (auto) 61.2 % (37.0-80.0); Platelet Count (auto) 311 10^3/uL (140-450); Red Blood Cells 4.32 10^6/uL (4.5-5.90); Red Cell Distribution Width 14.2 % (11.8-14.3); White Blood Cell 8.1 10^3/uL (4.4-10.8)
[2024-07-09 13:10] LABS: Alanine Aminotransferase 14 U/L (7-40); Alkaline Phosphatase 58 U/L (46-116); Anion Gap 3 (5-15); Blood Urea Nitrogen 7 mg/dL (9-23); Calcium 10.2 mg/dL (8.7-10.4); Carbon Dioxide 29 mmol/L (20-30); Chloride 105 mmol/L (98-107); Glucose 114 mg/dL (74-106); Potassium 4.1 mmol/L (3.5-5.1); Sodium 137 mmol/L (136-145)
[2024-07-09 13:11] LABS: Aspartate Aminotransferase 11 U/L (13-40); BUN/Creatinine Ratio 6.8 (10.0-20.0); Bilirubin, Total 0.4 mg/dL (0.2-1.0); Total Protein 7.1 g/dL (5.7-8.2)
[2024-07-09 13:15] LABS: INR 1.16 (0.9-1.15); Partial Thromboplastin Time 35.5 SEC (24.5-34.5); Prothrombin Time 12.2 sec (9.3-11.8)
[2024-07-09 14:00] LABS: Urine Bacteria FEW /hpf (None Seen); Urine Blood TRACE /uL (Negative); Urine Clarity Clear (Clear); Urine Color Yellow (Yellow); Urine Mucus FEW (None Seen); Urine Protein, UAD 1+ (Negative); Urine Specific Gravity 1.023 (1.001-1.035); Urine Urobilinogen 2 mg/dL (Negative); Urine WBC 8 /hpf (0 - 3)
[2024-07-09] MEDS ORDERED: CIPR-173 PO (14:38)
[2024-07-09] MEDS ORDERED: METR-344 PO (14:38)
[2024-07-09 15:50] VITALS: BP 127/66; PULSE 70; RESP 16; TEMP 97; O2SAT 99
== END 2024-07-09 15:51 | disposition home or self-care (01) ==
LOC: ER 11:06
DX: N39.0 Urinary tract infection, site not specified (principal); E11.9 Type 2 diabetes mellitus without complications; I10 Essential (primary) hypertension; E78.5 Hyperlipidemia, unspecified; Z86.718 Personal history of other venous thrombosis and embolism; Z79.84 Long term (current) use of oral hypoglycemic drugs; Z79.2 Long term (current) use of antibiotics; Z79.82 Long term (current) use of aspirin; Z79.899 Other long term (current) drug therapy
CPT/HCPCS: 36415; 74176; 80053; 81001; 83605; 84484; 85025; 85610; 85730; 86850; 86900; 86901; 96360; 99284; J7030

== ENCOUNTER → 2024-08-18 | Outpatient (CLI) | payer BC ==
[~2024-08-18] MED LIST changes: +CIPR-173 PO; +METR-344 PO
== END | disposition home or self-care (01) ==
LOC: LAB 11:15
PROVIDERS: ATTEND Urology
DX: N40.0 Benign prostatic hyperplasia without lower urinary tract symptoms (principal); R39.0 Extravasation of urine
CPT/HCPCS: 84153; 87086

== ENCOUNTER → 2025-02-02 | Outpatient (CLI) | payer BC ==
[2025-02-02 10:52] LABS: Alanine Aminotransferase 22 U/L (7-40); Albumin 4.7 g/dL (3.2-4.8); Alkaline Phosphatase 52 U/L (46-116); Anion Gap 8 (5-15); Aspartate Aminotransferase 15 U/L (13-40); BUN/Creatinine Ratio 5.8 (10.0-20.0); Bilirubin, Total 0.6 mg/dL (0.2-1.0); Carbon Dioxide 30 mmol/L (20-31); Chloride 103 mmol/L (98-107); Potassium 4.2 mmol/L (3.5-5.1); Sodium 141 mmol/L (136-145); Total Protein 7.8 g/dL (5.7-8.2)
[2025-02-02 11:05] LABS: Blood Urea Nitrogen 7 mg/dL (9-23); Calcium 10.8 mg/dL (8.7-10.4); Glucose 139 mg/dL (74-106)
== END | disposition home or self-care (01) ==
LOC: LAB 10:09
PROVIDERS: ATTEND Urology
DX: N28.89 Other specified disorders of kidney and ureter (principal)
CPT/HCPCS: 36415; 80053

== ENCOUNTER 2025-09-03 07:56 | Observation (INO) | payer BC ==
[2025-08-31 12:45] LABS: Hematocrit 45.5 % (41.0-53.0); Hemoglobin 15.2 g/dL (13.5-17.5); Mean Corpuscular Hemoglobin 30.0 pg (28.0-32.0); Mean Corpuscular Volume 89.8 fL (80.0-100.0); Nucleated Red Blood Cells % 0.1 %
[2025-08-31 12:55] LABS: Urine Protein, UAD TRACE (Negative)
[2025-08-31 13:00] LABS: INR 1.09 (0.9-1.15); Partial Thromboplastin Time 29.3 SEC (24.5-34.5); Prothrombin Time 11.5 sec (9.3-11.8)
[2025-08-31 13:05] LABS: Alanine Aminotransferase 23 U/L (7-40); Albumin 4.2 g/dL (3.2-4.8); Alkaline Phosphatase 45 U/L (46-116); Anion Gap 7 (5-15); BUN/Creatinine Ratio 4.8 (10.0-20.0); Blood Urea Nitrogen 6 mg/dL (9-23); Calcium 9.8 mg/dL (8.7-10.4); Carbon Dioxide 29 mmol/L (20-31); Chloride 104 mmol/L (98-107); Glucose 98 mg/dL (74-106); Potassium 4.3 mmol/L (3.5-5.1); Sodium 140 mmol/L (136-145); Total Protein 7.2 g/dL (5.7-8.2)
[2025-08-31 13:06] LABS: Bilirubin, Total 0.6 mg/dL (0.2-1.0)
[~2025-09-03] VITALS: Ht 177.8 cm; Wt 101.8 kg
[~2025-09-03 07:56] MED LIST changes: -CIPR-173 PO; -METR-344 PO; +SEMA2INJ3 SC
[2025-09-03] MEDS ORDERED: SUGAMMADEX 200mg/2ml Vial (100MG/ML) IV ONE (08:12)
[2025-09-03] MEDS ORDERED: ROCURONIUM 10MG/ML 10ML VIAL IV ONE (08:12)
[2025-09-03] MEDS ORDERED: PROPOFOL 10 MG/ML 20 ML IV ONE (08:12)
[2025-09-03] MEDS ORDERED: LIDOCAINE 2% (LOCAL ANESTH.) PF 5ml SDV ONE (08:12)
[2025-09-03] MEDS ORDERED: GLYCOPYRROLATE 0.2 MG/ML 1ML VIAL ONE (08:12)
[2025-09-03] MEDS ORDERED: ONDANSETRON HCL 4 MG/2 ML VIAL ONE (08:12)
[2025-09-03] MEDS ORDERED: KETOROLAC TROMETH 30 MG/ML 1ML VIAL ONE (08:12)
[2025-09-03] MEDS ORDERED: SODIUM CHLORIDE LOCK 20 ML ONE ×2 (08:17→08:18)
[2025-09-03] MEDS: CELECOXIB 100 MG CAP PO ONE (09:02)
[2025-09-03] MEDS: ACETAMINOPHEN IV 1000 MG/100ML (10MG/ML) IV ONE (09:02)
[2025-09-03] MEDS: GABAPENTIN 300 MG CAP PO ONE (09:02)
[2025-09-03] MEDS ORDERED: fentaNYL CITRATE 100 MCG/2 ML VL ONE (09:54)
[2025-09-03] MEDS: ceFAZolin 2 GM/D5W50ml 50 ML IV ONE (09:59)
[2025-09-03] MEDS ORDERED: PHENYLEPHRINE HCL 10 MG/ML VL ONE (10:35)
[2025-09-03] MEDS ORDERED: SODIUM CHLORIDE LOCK 10 ML ONE (10:35)
[2025-09-03] MEDS: ceFAZolin 1GM VL ONE (10:35)
[2025-09-03 12:43] VITALS: PULSE 86; RESP 12
--- NOTE | 2025-09-03 12:46 | DVHOP2 ---
Operative Report [id number] POSTINCISIONAL VENTRAL LLQ HERNIA RECTUS DIASTASIS MIDLINE OPEN REPAIR LLQ VENTRAL HERNIA WITH MESH AND B/L MUSCLE COMPONENT SEPARATION OPEN REPAIR OF MIDLINE VENTRAL RECTUS DIASTASIS R STUART NO ASSIST ONE DIEGO DRAIN ONE VIVI DRAIN EBL 25 CC NO COMPLICATIONS STABLE TRANSFER RO RECOVERY ROOM ADMIT 24 HRS FOR PAIN CONTROL.OBSERVATION NICOLAS DAVIDSON MD Sep 03, 2025 12:45
[2025-09-03] MEDS ORDERED: KETAMINE 50mg/ML 1ml syringe IM ONE (12:55)
[2025-09-03] MEDS ORDERED: MORPHINE SULFATE INJ 2 MG/ml SYRG IV PRN (13:00)
[2025-09-03] MEDS ORDERED: ONDANSETRON HCL 4 MG/2 ML VIAL IV PRN ×2 (13:00→16:30)
[2025-09-03] MEDS ORDERED: FLUMAZENIL 0.1 MG/ML INJ 10ML MDV IV PRN (13:00)
[2025-09-03] MEDS ORDERED: HYDROmorphone HCL 2 MG/ML VL/or syr IV PRN ×2 (13:00)
[2025-09-03] MEDS ORDERED: NALOXONE HCL 0.4 MG/ML VIAL IV PRN (13:00)
[2025-09-03] MEDS ORDERED: NITROGLYCERIN 0.4 MG SL TAB SL PRN (13:00)
[2025-09-03] MEDS ORDERED: hydrALAZINE HCL 20 MG/ML VL IV PRN (13:00)
[2025-09-03] MEDS ORDERED: fentaNYL CITRATE 100 MCG/2 ML VL IV PRN (13:00)
--- NOTE | 2025-09-03 13:31 | DVHOP ---
DATE OF SURGERY: 09/03/2025 PREOPERATIVE DIAGNOSES: Post incisional left lower quadrant ventral hernia and rectus muscle diastasis in the midline ventral location. POSTOPERATIVE DIAGNOSIS: Post incisional left lower quadrant ventral hernia and rectus muscle diastasis in the midline ventral location. PROCEDURES: Open repair of this left lower quadrant ventral hernia with mesh and bilateral muscle component separation and repair of the rectus muscle diastasis in the midline. SURGEON: Isaac Nevarez MD. NATURAL G[employer] T[employer]ATING UNIT OPERATOR: None. ANESTHESIA: General. BLOOD LOSS: Close to 25 mL. DRAINS: One drain was used for the left lower quadrant hernia site. COMPLICATIONS: There were no complications. DESCRIPTION OF PROCEDURE: The patient was prepped and draped in the usual sterile fashion in the supine position and vertical midline incision was applied overlying this previous incisional site to the right of the umbilicus, supraumbilically and infraumbilically and going down the deeper tissues. The rectus diastasis was noted. The tissue fascia was weak on all sides and the abdomen was entered. The omental tissue was released and the hernia defect was realized in the left lower quadrant from inside. It was the previous colostomy site hernia and the bowel was reduced back into the abdomen. A separate incision was applied to repair the left lower quadrant ventral hernia in a transverse oblique fashion taken down to the deeper tissues. The sac was removed. The contents were reduced back into the abdomen. The fascial edges were defined and Prolene suture was used to secure the fascial edges after the bilateral muscle component separation was carried out on either side without compromising any neurovascular tissue. The mesh also was placed preperitoneally and secured in place using Prolene suture in all four quadrants and the strings of the mesh detached. Fascia was then brought together using Prolene suture in interrupted mattress fashion, reinforced with Vicryl suture. The wound was irrigated. Hemostasis was secured. A size #19 Francois drainage tube was placed to drain the subcutaneous tissues bringing up from the lateral side of the incision as a separate incision and securing the drain with a silk suture. The wound itself was brought together using Vicryl suture for the subcutaneous tissue and 3-0 Monocryl suture for skin closure in a subcuticular fashion. Surgical glue was applied. Steri-Strips were applied and then attention was focused on the midline incision site where the fascial edges were brought together in the midline after the glove changes were performed and the bowel was replaced back into the abdomen without any complication. The PDS suture was used to do that and reinforced with Vicryl suture at various locations. The wound itself was brought together using 3-0 Monocryl suture in a subcuticular fashion and surgical glue was applied. Steri-Strips were applied. Dressing was applied. The patient tolerated the procedure well. A Linden drain also was placed to drain the subcutaneous tissues in the midline incision, securing it with a Vicryl suture towards the lower portion of the incision and then a dressing was applied. The patient tolerated the procedure well and was taken back to the recovery room in stable condition. MD JOHN Patterson/NGOC/TASHIA TID: [id number] RECEIPT: [id number] MTDD
[2025-09-03] MEDS: BUPIVACAINE HCL 50 ML ONE (15:51)
[2025-09-03] MEDS: CELECOXIB 100 MG CAP ONE (15:52)
[2025-09-03] MEDS: GABAPENTIN 300 MG CAP ONE (15:52)
[2025-09-03] MEDS: ACETAMINOPHEN IV 100 ML IV ONE (15:52)
[2025-09-03] MEDS ORDERED: DEXTROSE (50%) 50ML SYRG IV PRN (16:30)
--- NOTE | 2025-09-03 16:33 | DVHHP2 ---
Review of Systems Allergies: Coded Allergies: NO KNOWN ALLERGIES (Unverified , 12/28/23) Medications Current Medications Medications Dose Ordered Sig/Radha Route Start Time Stop Time Status Last Admin Dose Admin Oxycodone HCl 10 mg ONCE PRN PO 09/03/25 13:00 Nitroglycerin 0.4 mg Q5MINP PRN SL 09/03/25 13:00 Morphine Sulfate 2 mg Q30M PRN IV 09/03/25 13:00 Hydromorphone HCl 0.5 mg Q4HPRN PRN IV 09/03/25 13:00 Ceftriaxone Sodium 50 ml @ 100 mls/hr DAILY@09 IV 09/04/25 09:00 Exam Vital Signs Vital Signs Date Time Temp Pulse Resp B/P (MAP) Pulse Ox O2 Delivery O2 Flow Rate FiO2 09/03/25 15:28 79 16 126/77 (93) 99 09/03/25 14:30 Nasal Cannula 1.0 100 09/03/25 12:43 97.1 97.1 Labs/Xrays Labs Test 09/03/25 08:44 08/31/25 12:05 Range/Units POC Glucose 113 H 70-106 mg/dl White Blood Count 6.3 4.4-10.8 10^3/uL Red Blood Count 5.07 4.5-5.90 10^6/uL Hemoglobin 15.2 13.5-17.5 g/dL Hematocrit 45.5 41.0-53.0 % Mean Corpuscular Volume 89.8 80.0-100.0 fL Mean Corpuscular Hemoglobin 30.0 28.0-32.0 pg Mean Corpuscular Hemoglobin Concent 33.4 32.0-36.0 g/dL Red Cell Distribution Width 13.2 11.8-14.3 % Platelet Count 238 140-450 10^3/uL Mean Platelet Volume 9.6 6.9-10.8 fL Neutrophils (%) (Auto) 53.9 37.0-80.0 % Lymphocytes (%) (Auto) 36.6 10.0-50.0 % Monocytes (%) (Auto) 7.3 0.0-12.0 % Eosinophils (%) (Auto) 1.5 0.0-7.0 % Basophils (%) (Auto) 0.7 0.0-2.0 % Neutrophils # (Auto) 3.4 1.6-8.6 10 ^3/uL Lymphocytes # (Auto) 2.3 0.4-5.4 10 ^3/uL Monocytes # (Auto) 0.5 0-1.3 10 ^3/uL Eosinophils # (Auto) 0.1 0-0.8 10 ^3/uL Basophils # (Auto) 0 0-0.2 10 ^3/uL Nucleated Red Blood Cells 0.1 % Prothrombin Time 11.5 9.3-11.8 sec Prothrombin Time INR 1.09 0.9-1.15 Activated Partial Thromboplast Time 29.3 24.5-34.5 SEC Urine Color Yellow Yellow Urine Clarity Clear Clear Urine pH 6.0 5.0-9.0 Urine Specific [place] 1.029 1.001-1.035 Urine Protein Trace H Negative Urine Ketones Negative Negative Urine Blood Negative Negative /uL Urine Nitrite Negative Negative Urine Bilirubin Negative Negative Urine Urobilinogen 2 H Negative mg/dL Urine Leukocyte Esterase Negative Negative /uL Urine RBC <1 0 - 3 /hpf Urine Microscopic WBC 4 H 0-3 /HPF Urine Squamous Epithelial Cells Few <5 /hpf Urine Bacteria None seen None Seen /hpf Urine Mucus Few None Seen Urine Glucose Normal Normal mg/dL Sodium Level 140 136-145 mmol/L Potassium Level 4.3 3.5-5.1 mmol/L Chloride Level 104 98-107 mmol/L Carbon Dioxide Level 29 20-31 mmol/L Anion Gap 7 5-15 Blood Urea Nitrogen 6 L 9-23 mg/dL Creatinine 1.25 0.700-1.30 mg/dL Glomerular Filtration Rate Calc 65 >90 mL/min BUN/Creatinine Ratio 4.8 L 10.0-20.0 Serum Glucose 98 74-106 mg/dL Calcium Level 9.8 8.7-10.4 mg/dL Total Bilirubin 0.6 0.2-1.0 mg/dL Aspartate Amino Transferase (AST) 22 13-40 U/L Alanine Aminotransferase (ALT) 23 7-40 U/L Alkaline Phosphatase 45 L 46-116 U/L Total Protein 7.2 5.7-8.2 g/dL Albumin 4.2 3.2-4.8 g/dL SEPSIS Sepsis Screen Physician Orders Taker Off Drying Kiln (09/03/25 12:51) Notify Anesth. For Changes: (09/03/25 12:51) Pulse Ox Assessment (09/03/25 12:51) Bear Hugger For Temp <94.5f (09/03/25 12:51) May Have Head Of Bed Up (09/03/25 12:51) Follow Iv With Surgeon Orders (09/03/25 12:51) Discharge To Room Per Criteria (09/03/25 12:51) Oxycodone Immediate Rel Tablet (09/03/25 13:00) Admit (09/03/25 12:54) Oxygen By Nasal Cannula (09/03/25 12:54) Nitroglycerin Sublingual (Ntrostat Subli (09/03/25 13:00) Morphine Sulfate Injection (09/03/25 13:00) Stat Ekg For Chest Pain (09/03/25 12:54) Notify Md Of Changes From Base (09/03/25 12:54) Emergency Dysrhythmia Protocol (09/03/25 12:54) Rhythm Strips Once Every Shift (09/03/25 12:54) Clear Liq Diet (09/03/25 Lunch) Drain Assessment Q6HR (09/03/25 12:54) Hydromorphone Injection (Dilaudid Inject (09/03/25 13:00) Ceftriaxone 1gm/50ml (Rocephin) (09/04/25 09:00) Abdominal Binder (09/03/25 13:03) Glucose Blood (Accu-Chek Comfort Curve T (09/03/25 17:00) Mild Sliding Scale (09/03/25 17:00) Dextrose 50% Syringe (09/03/25 16:30) Enoxaparin Sodium (Lovenox) (09/04/25 10:00) Hydrocodone-Acet 5/325mg Tab ([place] 5/32 (09/03/25 16:30) Acetaminophen Tablet (Tylenol Tablet) (09/03/25 16:30) Ondansetron Hcl (Zofran) (09/03/25 16:30) Complete Blood Count (09/04/25 06:00) Comprehensive Metabolic Panel (09/04/25 06:00) Hemoglobin A1c (09/04/25 06:00) Vital Signs Date Time Temp Pulse Resp B/P (MAP) Pulse Ox O2 Delivery O2 Flow Rate FiO2 09/03/25 15:28 79 16 126/77 (93) 99 09/03/25 14:30 Nasal Cannula 1.0 100 09/03/25 14:28 73 15 131/79 (96) 100 09/03/25 13:58 72 16 131/76 (94) 99 09/03/25 13:28 78 20 128/76 (93) 99 09/03/25 13:19 Nasal Cannula 2.0 99 09/03/25 13:13 75 17 129/80 (96) 100 09/03/25 12:58 76 18 126/79 (95) 100 09/03/25 12:53 82 12 124/76 (92) 93 09/03/25 12:48 84 17 130/77 (94) 95 09/03/25 12:43 86 12 09/03/25 12:43 Nasal Cannula 4.0 99 09/03/25 12:43 97.1 86 12 130/79 (96) 99 97.1 Medications Medications Dose Ordered Sig/Radha Route Start Time Stop Time Status Last Admin Dose Admin Acetaminophen 1,000 mg ONCE ONCE IV 09/03/25 08:45 09/03/25 09:03 DC 09/03/25 09:02 1,000 MG Cefazolin Sodium 1 gm STK-MED ONCE .ROUTE 09/03/25 08:56 09/03/25 08:52 DC 09/03/25 10:35 1 GM Cefazolin Sodium/ Dextrose 50 ml @ ud STK-MED ONCE IV 09/03/25 08:34 09/03/25 08:30 DC 09/03/25 09:59 Celecoxib 200 mg ONCE ONCE PO 09/03/25 08:45 09/03/25 09:03 DC 09/03/25 09:02 200 MG Gabapentin 300 mg ONCE ONCE PO 09/03/25 08:45 09/03/25 09:03 DC 09/03/25 09:02 300 MG Assessment/Plan Assessment/Plan SEE DICTATED NOTE Plan discussed with: Patient My Orders Orders - CARYN MORALEZ MD Procedure Category Date Status Time Glucose Blood PHA 09/03/25 Verified (Accu-Chek Comfort 17:00 Mild Sliding Scale PHA 09/03/25 Verified 17:00 Dextrose 50% Syringe PHA 09/03/25 Verified 16:30 Enoxaparin Sodium PHA 09/04/25 Verified (Lovenox) 10:00 Hydrocodone-Acet PHA 09/03/25 Verified 5/325mg Tab ([place] 16:30 Acetaminophen Tablet PHA 09/03/25 Verified (Tylenol Tablet) 16:30 Ondansetron Hcl PHA 09/03/25 Verified (Zofran) 16:30 Complete Blood Count LAB 09/04/25 Verified 06:00 Comprehensive LAB 09/04/25 Verified Metabolic Panel 06:00 Hemoglobin A1c LAB 09/04/25 Verified 06:00 Date of Service: Sep 03, 2025 Billing Provider: CARYN MORALEZ MD Common Visit Codes: [id number] INP/OBS CARE (HIGH) Secondary Visit Codes: [id number] CARE PLAN 30 MINUTES CARYN MORALEZ MD Sep 03, 2025 16:33
[2025-09-03] MEDS: ACCU-CHEK COMFORT CURVE STRIP VI SCH (17:00)
[2025-09-03] MEDS: InsuLIN REG 1unit/0.01ml Soln (100units/ml) SC SCH (17:00)
--- NOTE | 2025-09-03 17:02 | DVHHP ---
ADMIT DATE: 09/03/2025 HISTORY OF PRESENT ILLNESS: The patient is a 65-year-old gentleman who has been admitted after he underwent ventral hernia repair by Dr. Nevarez. The patient at this time denies any significant pain. No chest pain, no shortness of breath, no nausea or vomiting. REVIEW OF SYSTEMS: Review of rest of the systems otherwise currently negative. 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 MEDICATIONS: Include Eliquis, Lipitor, losartan, metformin, metoprolol, and Ozempic. ALLERGIES: No known drug allergies. SOCIAL HISTORY: Denies smoking or alcohol. Lives at home with his . FAMILY HISTORY: Negative. PHYSICAL EXAMINATION: GENERAL: The patient is awake, alert. VITAL SIGNS: Temperature of 97.1, pulse 72 per minute, blood pressure 131/76. SHEENT: Unremarkable. NECK: There is no JVD, no pedal edema. LUNGS: Equal bilaterally with no added sounds. CARDIOVASCULAR: S1 and S2 is regular without murmurs. ABDOMEN: Soft. Bowel sounds are hypoactive. There is a dressing at the site of the surgery. NEUROLOGIC: Nonfocal. MUSCULOSKELETAL: Normal. ASSESSMENT AND PLAN: * Diabetes mellitus for which the patient will be placed on sliding scale insulin. * Hypertension. Blood pressure will be monitored. * Hyperlipidemia. * History of DVT/PE. * Status post ventral hernia repair for which he will be placed on pain medications along with IV fluids. ADVANCED CARE PLANNING: The patient is a full code-Time spent was 17 minutes. Zac Yanes MD JLN/EKT TID: [id number] RECEIPT: [id number] [facility]
[2025-09-03 19:51] VITALS: PULSE 94; RESP 18; O2SAT 98
[2025-09-03 20:00] VITALS: PULSE 91; RESP 18; O2SAT 98
[2025-09-03 21:00] VITALS: BP 115/79; PULSE 94; RESP 18; TEMP 98.6; O2SAT 98
[2025-09-03] MEDS: SODIUM CHLORIDE 0.9% 1,000 ML IV SCH (21:31)
[2025-09-03] MEDS: HYDROcodone-ACET 5/325MG TAB PO PRN (21:32)
[2025-09-04] VITALS (8 sets, daily range): BP systolic 99–130; BP diastolic 55–74; PULSE 79–99; RESP 16–18; TEMP 97.5–98.1; O2SAT 92–99
[2025-09-04] MEDS: ACETAMINOPHEN 325 MG TAB PO PRN (06:07)
[2025-09-04 06:56] LABS: Alanine Aminotransferase 19 U/L (7-40); Albumin 3.8 g/dL (3.2-4.8); Anion Gap 12 (5-15); BUN/Creatinine Ratio 7.6 (10.0-20.0); Calcium 9.5 mg/dL (8.7-10.4); Carbon Dioxide 25 mmol/L (20-31); Chloride 103 mmol/L (98-107); Potassium 4.2 mmol/L (3.5-5.1); Sodium 140 mmol/L (136-145); Total Protein 6.5 g/dL (5.7-8.2)
[2025-09-04 06:57] LABS: Bilirubin, Total 0.6 mg/dL (0.2-1.0)
[2025-09-04 07:04] LABS: Alkaline Phosphatase 42 U/L (46-116); Blood Urea Nitrogen 8 mg/dL (9-23); Glucose 118 mg/dL (74-106)
[2025-09-04 07:07] LABS: Hematocrit 40.1 % (41.0-53.0); Hemoglobin 13.6 g/dL (13.5-17.5); Mean Corpuscular Hemoglobin 30.1 pg (28.0-32.0); Mean Corpuscular Volume 88.7 fL (80.0-100.0); Nucleated Red Blood Cells % 0.0 %
[2025-09-04] MEDS: ENOXAPARIN SOD 40 MG/0.4 ML SYRINGE SC SCH (09:54)
--- NOTE | 2025-09-04 12:32 | DVHPN2 ---
Subjective The patient is seen and examined at bedside. The patient complained of abdominal pain. Reviewed: Care Plan, H&P, Labs, Medications, Previous Orders, Radiology Changes from previous H/P or p: No Changes Objective Vitals Vital Signs Date Time Temp Pulse Resp B/P (MAP) Pulse Ox O2 Delivery O2 Flow Rate FiO2 09/04/25 09:00 97.7 86 18 109/69 (82) 93 97.7 09/03/25 20:00 Nasal Cannula* 2 28 Intake/Output Intake and Output 09/04/25 07:00 Intake Total 700 ml Output Total 0 ml Balance 700 ml Intake Oral 550 ml IV Total 150 ml Output Drainage Total 0 ml # Voids 2 General Appearance: Alert, Oriented X3, Cooperative, No acute distress HEENT: Atraumatic, PERRLA, EOMI, Mucous membr. moist/pink Neck: Supple Lungs: Clear to auscultation Cardiovascular: Regular rate, Normal S1, Normal S2, No murmurs, Gallops, Rubs Abdomen: Normal bowel sounds, Soft, No tenderness Neuro: Cranial nerves 3-12 NL Psych/Mental Status: Mental status NL Medications Current Medications Medications Dose Ordered Sig/Radha Route Start Time Stop Time Status Last Admin Dose Admin Oxycodone HCl 10 mg ONCE PRN PO 09/03/25 13:00 Nitroglycerin 0.4 mg Q5MINP PRN SL 09/03/25 13:00 Morphine Sulfate 2 mg Q30M PRN IV 09/03/25 13:00 Hydromorphone HCl 0.5 mg Q4HPRN PRN IV 09/03/25 13:00 Ceftriaxone Sodium 50 ml @ 100 mls/hr DAILY@09 IV 09/04/25 09:00 09/04/25 09:00 100 MLS/HR Diagnostic Test (Pha) 1 strip ACHS 09/03/25 17:00 09/04/25 06:09 1 STRIP Insulin Human Regular ACHS SC 09/03/25 17:00 Dextrose 50 ml UD PRN IV 09/03/25 16:30 Enoxaparin Sodium 40 mg DAILY SC 09/04/25 10:00 09/04/25 09:54 40 MG Acetaminophen/ Hydrocodone Bitart 1 tab Q6HPRN PRN PO 09/03/25 16:30 09/03/25 21:32 1 TAB Acetaminophen 650 mg Q6HP PRN PO 09/03/25 16:30 09/04/25 06:07 650 MG Ondansetron HCl 4 mg Q6HPRN PRN IV 09/03/25 16:30 Sodium Chloride 1,000 ml @ 75 mls/hr [id number] IV 09/03/25 16:45 09/03/25 21:31 75 MLS/HR Laboratory Results Laboratory Tests 09/04/25 05:58 Chemistry Test 09/04/25 05:58 Albumin 3.8 g/dL (3.2-4.8) Calcium Level 9.5 mg/dL (8.7-10.4) Total Protein 6.5 g/dL (5.7-8.2) LFT Test 09/04/25 05:58 Alanine Aminotransferase (ALT) 19 U/L (7-40) Alkaline Phosphatase 42 U/L (46-116) L Aspartate Amino Transferase (AST) 25 U/L (13-40) Total Bilirubin 0.6 mg/dL (0.2-1.0) HgA1c, TSH Test 09/04/25 05:58 Hemoglobin A1c 6.2 % A1C (<5.7) H Urinalysis Test 08/31/25 12:05 Urine Color Yellow (Yellow) Urine Clarity Clear (Clear) Urine pH 6.0 (5.0-9.0) Urine Specific [place] 1.029 (1.001-1.035) Urine Protein Trace (Negative) H Urine Ketones Negative (Negative) Urine Blood Negative /uL (Negative) Urine Nitrite Negative (Negative) Urine Bilirubin Negative (Negative) Urine Urobilinogen 2 mg/dL (Negative) H Urine Leukocyte Esterase Negative /uL (Negative) Urine RBC <1 /hpf (0 - 3) Urine Microscopic WBC 4 /HPF (0-3) H Urine Squamous Epithelial Cells Few /hpf (<5) Urine Bacteria None seen /hpf (None Seen) Urine Mucus Few (None Seen) Urine Glucose Normal mg/dL (Normal) Labs and/or images reviewed: Labs reviewed by me Assessment/Plan Assessment/Plan Diabetes type 2 Hypertension Hyperlipidemia History of DVT/PE History of ventral hernia repair Continuing current management. Continuing with pain medication. Continuing with IV fluid. Continuing with sliding scale insulin. Continuing with IV hypertensive medication. Discharge planning when cleared by surgeon. Waiting for Dr. Nevarez, surgeon to see the patient. This medical document was created using an electronic medical record system with [employer] direct computerized dictation system. Although this document has been carefully reviewed, there may still be some phonetic and typographical errors. These areas are purely typographical due to imperfections of the software programs, and do not reflect any compromise in the patient's medical care. Plan discussed with: Patient Date of Service: Sep 04, 2025 Billing Provider: MIREYA BETTENCOURT MD Common Visit Codes: [id number] INP/OBS CARE(HIGH) MIREYA BETTENCOURT MD Sep 04, 2025 12:32
--- NOTE | 2025-09-04 17:26 | DVHPN2 ---
Progress Note Date Seen: Sep 04, 2025 Medical Necessity Reason Pt with a Central, PICC or Fol: No Objective vital signs Vital Sign Date Time Temp Pulse Resp B/P (MAP) Pulse Ox O2 Delivery O2 Flow Rate FiO2 09/04/25 16:56 98.0 79 16 130/72 (91) 92 98.0 09/03/25 20:00 Nasal Cannula* 2 28 Total Intake and Output 09/03/25 09/03/25 09/04/25 15:00 23:00 07:00 Intake Total 150 ml 550 ml Output Total 0 ml 0 ml Balance 150 ml 0 ml 550 ml medications Current Medications Medications Dose Ordered Sig/Radha Route Start Time Stop Time Status Last Admin Dose Admin Oxycodone HCl 10 mg ONCE PRN PO 09/03/25 13:00 Nitroglycerin 0.4 mg Q5MINP PRN SL 09/03/25 13:00 Morphine Sulfate 2 mg Q30M PRN IV 09/03/25 13:00 Hydromorphone HCl 0.5 mg Q4HPRN PRN IV 09/03/25 13:00 Ceftriaxone Sodium 50 ml @ 100 mls/hr DAILY@09 IV 09/04/25 09:00 09/04/25 09:00 100 MLS/HR Diagnostic Test (Pha) 1 strip ACHS 09/03/25 17:00 09/04/25 11:30 1 STRIP Insulin Human Regular ACHS SC 09/03/25 17:00 Dextrose 50 ml UD PRN IV 09/03/25 16:30 Enoxaparin Sodium 40 mg DAILY SC 09/04/25 10:00 09/04/25 09:54 40 MG Acetaminophen/ Hydrocodone Bitart 1 tab Q6HPRN PRN PO 09/03/25 16:30 09/03/25 21:32 1 TAB Acetaminophen 650 mg Q6HP PRN PO 09/03/25 16:30 09/04/25 06:07 650 MG Ondansetron HCl 4 mg Q6HPRN PRN IV 09/03/25 16:30 Sodium Chloride 1,000 ml @ 75 mls/hr [id number] IV 09/03/25 16:45 09/03/25 21:31 75 MLS/HR laboratory and microbiology Laboratory Tests 09/04/25 05:58 Test 09/04/25 05:58 Range/Units Serum Glucose 118 H 74-106 mg/dL Problem List/Assessment/Plan Problem List/Assessment/Plan AFEBRILE VSS ABD SOFT FLATUS + S/P VENTRAL HERNIA REPAIR NO COMPLICATIONS DRAINS IN PLACE DRESSING CHANGED NURSE AT BEDSIDE ADVANCE DIET MARIO Plan discussed with: Patient NICOLAS DAVIDSON MD Sep 04, 2025 17:26
[2025-09-05 01:00] VITALS: BP 112/69; PULSE 80; RESP 18; TEMP 98; O2SAT 96
[2025-09-05 05:00] VITALS: BP 111/71; PULSE 85; RESP 18; TEMP 97.9; O2SAT 94
[2025-09-05 08:00] VITALS: PULSE 82; RESP 18; O2SAT 99
[2025-09-05 09:00] VITALS: BP 143/83; PULSE 80; RESP 20; TEMP 98.2; O2SAT 97
--- NOTE | 2025-09-05 09:18 | DVHPN2 ---
Progress Note Date Seen: Sep 05, 2025 Medical Necessity Reason Pt with a Central, PICC or Fol: No Objective vital signs Vital Sign Date Time Temp Pulse Resp B/P (MAP) Pulse Ox O2 Delivery O2 Flow Rate FiO2 09/05/25 08:00 82 18 99 Room Air* 0 N/A Nasal Cannula* 09/05/25 05:00 97.9 111/71 (84) 97.9 Total Intake and Output 09/04/25 09/04/25 09/05/25 15:00 23:00 07:00 Intake Total 500 ml 540 ml Output Total 30 ml Balance -30 ml 500 ml 540 ml medications Current Medications Medications Dose Ordered Sig/Radha Route Start Time Stop Time Status Last Admin Dose Admin Oxycodone HCl 10 mg ONCE PRN PO 09/03/25 13:00 Nitroglycerin 0.4 mg Q5MINP PRN SL 09/03/25 13:00 Morphine Sulfate 2 mg Q30M PRN IV 09/03/25 13:00 Hydromorphone HCl 0.5 mg Q4HPRN PRN IV 09/03/25 13:00 Ceftriaxone Sodium 50 ml @ 100 mls/hr DAILY@09 IV 09/04/25 09:00 09/04/25 09:00 100 MLS/HR Diagnostic Test (Pha) 1 strip ACHS 09/03/25 17:00 09/05/25 06:41 1 STRIP Insulin Human Regular ACHS SC 09/03/25 17:00 09/04/25 22:01 3 UNITS Dextrose 50 ml UD PRN IV 09/03/25 16:30 Enoxaparin Sodium 40 mg DAILY SC 09/04/25 10:00 09/04/25 09:54 40 MG Acetaminophen/ Hydrocodone Bitart 1 tab Q6HPRN PRN PO 09/03/25 16:30 09/03/25 21:32 1 TAB Acetaminophen 650 mg Q6HP PRN PO 09/03/25 16:30 09/04/25 06:07 650 MG Ondansetron HCl 4 mg Q6HPRN PRN IV 09/03/25 16:30 Sodium Chloride 1,000 ml @ 75 mls/hr [id number] IV 09/03/25 16:45 09/05/25 08:19 75 MLS/HR laboratory and microbiology Laboratory Tests 09/04/25 05:58 Test 09/04/25 05:58 Range/Units Serum Glucose 118 H 74-106 mg/dL Problem List/Assessment/Plan Problem List/Assessment/Plan AFEBRILE VSS ABD SOFT FLATUS + S/P VENTRAL HERNIA REPAIR NO COMPLICATIONS DRAINS IN PLACE DRESSING CHANGED VIVI MIDLINE WOUND DRAIN REMOVED NURSE AT BEDSIDE ADVANCE DIET MARIO CLEARED FOR DISCHARGE INSTRUCTIONS RE DIET ACTIVITY F/UP DRAIN CARE GIVEN ABD BINDER Plan discussed with: Patient My Orders My Orders Orders - NICOLAS DAVIDSON MD Procedure Category Date Status Time Mechanical Soft Diet DIET 09/04/25 Transmitted Dinner NICOLAS DAVIDSON MD Sep 05, 2025 09:18
[2025-09-05 13:00] VITALS: BP 149/82; PULSE 75; RESP 20; TEMP 98.2; O2SAT 97
--- NOTE | 2025-09-05 14:50 | DVHPN2 ---
Objective Vitals Vital Signs Date Time Temp Pulse Resp B/P (MAP) Pulse Ox O2 Delivery O2 Flow Rate FiO2 09/05/25 13:00 98.2 75 20 149/82 (104) 97 98.2 09/05/25 08:00 Room Air* 0 N/A Nasal Cannula* Intake/Output Intake and Output 09/05/25 07:00 Intake Total 1040 ml Output Total 30 ml Balance 1010 ml Intake Oral 1040 ml Output Drainage Total 30 ml # Voids 2 Medications Current Medications Medications Dose Ordered Sig/Radha Route Start Time Stop Time Status Last Admin Dose Admin Oxycodone HCl 10 mg ONCE PRN PO 09/03/25 13:00 Nitroglycerin 0.4 mg Q5MINP PRN SL 09/03/25 13:00 Morphine Sulfate 2 mg Q30M PRN IV 09/03/25 13:00 Hydromorphone HCl 0.5 mg Q4HPRN PRN IV 09/03/25 13:00 Ceftriaxone Sodium 50 ml @ 100 mls/hr DAILY@09 IV 09/04/25 09:00 09/05/25 09:56 100 MLS/HR Diagnostic Test (Pha) 1 strip ACHS 09/03/25 17:00 09/05/25 06:41 1 STRIP Insulin Human Regular ACHS SC 09/03/25 17:00 09/04/25 22:01 3 UNITS Dextrose 50 ml UD PRN IV 09/03/25 16:30 Enoxaparin Sodium 40 mg DAILY SC 09/04/25 10:00 09/05/25 09:56 40 MG Acetaminophen/ Hydrocodone Bitart 1 tab Q6HPRN PRN PO 09/03/25 16:30 09/03/25 21:32 1 TAB Acetaminophen 650 mg Q6HP PRN PO 09/03/25 16:30 09/04/25 06:07 650 MG Ondansetron HCl 4 mg Q6HPRN PRN IV 09/03/25 16:30 Sodium Chloride 1,000 ml @ 75 mls/hr [id number] IV 09/03/25 16:45 09/05/25 08:19 75 MLS/HR Laboratory Results Laboratory Tests 09/04/25 05:58 Urinalysis Test 08/31/25 12:05 Urine Color Yellow (Yellow) Urine Clarity Clear (Clear) Urine pH 6.0 (5.0-9.0) Urine Specific [place] 1.029 (1.001-1.035) Urine Protein Trace (Negative) H Urine Ketones Negative (Negative) Urine Blood Negative /uL (Negative) Urine Nitrite Negative (Negative) Urine Bilirubin Negative (Negative) Urine Urobilinogen 2 mg/dL (Negative) H Urine Leukocyte Esterase Negative /uL (Negative) Urine RBC <1 /hpf (0 - 3) Urine Microscopic WBC 4 /HPF (0-3) H Urine Squamous Epithelial Cells Few /hpf (<5) Urine Bacteria None seen /hpf (None Seen) Urine Mucus Few (None Seen) Urine Glucose Normal mg/dL (Normal) MIREYA BETTENCOURT MD Sep 05, 2025 14:50
[2025-09-05] MEDS ORDERED: CEPH250C PO (14:51)
--- NOTE | 2025-09-05 14:53 | DVHDS2 ---
Discharge Summary Date of Admission Sep 03, 2025 at 12:54 Date of Discharge: Sep 05, 2025 Admitting Diagnosis Diabetes type 2 Hypertension Hyperlipidemia History of DVT/PE History of ventral hernia repair Labs/Diagnostic Data: Laboratory Results Test 09/05/25 06:37 09/04/25 05:58 08/31/25 12:05 POC Glucose 89 mg/dl (70-106) White Blood Count 14.4 10^3/uL (4.4-10.8) Red Blood Count 4.52 10^6/uL (4.5-5.90) Hemoglobin 13.6 g/dL (13.5-17.5) Hematocrit 40.1 % (41.0-53.0) Mean Corpuscular Volume 88.7 fL (80.0-100.0) Mean Corpuscular Hemoglobin 30.1 pg (28.0-32.0) Mean Corpuscular Hemoglobin Concent 33.9 g/dL (32.0-36.0) Red Cell Distribution Width 13.5 % (11.8-14.3) Platelet Count 233 10^3/uL (140-450) Mean Platelet Volume 9.9 fL (6.9-10.8) Neutrophils (%) (Auto) 86.1 % (37.0-80.0) Lymphocytes (%) (Auto) 9.4 % (10.0-50.0) Monocytes (%) (Auto) 4.5 % (0.0-12.0) Eosinophils (%) (Auto) 0.0 % (0.0-7.0) Basophils (%) (Auto) 0.0 % (0.0-2.0) Neutrophils # (Auto) 12.4 10 ^3/uL (1.6-8.6) Lymphocytes # (Auto) 1.4 10 ^3/uL (0.4-5.4) Monocytes # (Auto) 0.7 10 ^3/uL (0-1.3) Eosinophils # (Auto) 0 10 ^3/uL (0-0.8) Basophils # (Auto) 0 10 ^3/uL (0-0.2) Nucleated Red Blood Cells 0.0 % Sodium Level 140 mmol/L (136-145) Potassium Level 4.2 mmol/L (3.5-5.1) Chloride Level 103 mmol/L (98-107) Carbon Dioxide Level 25 mmol/L (20-31) Anion Gap 12 (5-15) Blood Urea Nitrogen 8 mg/dL (9-23) Creatinine 1.05 mg/dL (0.700-1.30) Glomerular Filtration Rate Calc 80 mL/min (>90) BUN/Creatinine Ratio 7.6 (10.0-20.0) Serum Glucose 118 mg/dL (74-106) Hemoglobin A1c 6.2 % A1C (<5.7) Calcium Level 9.5 mg/dL (8.7-10.4) Total Bilirubin 0.6 mg/dL (0.2-1.0) Aspartate Amino Transferase (AST) 25 U/L (13-40) Alanine Aminotransferase (ALT) 19 U/L (7-40) Alkaline Phosphatase 42 U/L (46-116) Total Protein 6.5 g/dL (5.7-8.2) Albumin 3.8 g/dL (3.2-4.8) Prothrombin Time 11.5 sec (9.3-11.8) Prothrombin Time INR 1.09 (0.9-1.15) Activated Partial Thromboplast Time 29.3 SEC (24.5-34.5) Urine Color Yellow (Yellow) Urine Clarity Clear (Clear) Urine pH 6.0 (5.0-9.0) Urine Specific [place] 1.029 (1.001-1.035) Urine Protein Trace (Negative) Urine Ketones Negative (Negative) Urine Blood Negative /uL (Negative) Urine Nitrite Negative (Negative) Urine Bilirubin Negative (Negative) Urine Urobilinogen 2 mg/dL (Negative) Urine Leukocyte Esterase Negative /uL (Negative) Urine RBC <1 /hpf (0 - 3) Urine Microscopic WBC 4 /HPF (0-3) Urine Squamous Epithelial Cells Few /hpf (<5) Urine Bacteria None seen /hpf (None Seen) Urine Mucus Few (None Seen) Urine Glucose Normal mg/dL (Normal) Other Laboratory Tests 09/04/25 05:58 Brief Hx & Hospital Course: This is a 65 years old male who underwent ventral hernia repair by Dr. Nevarez. He said he came home and was doing okay for couple day then he started having severe abdominal pain. No fever, no chill no shortness for breath. Dr. Nevarez see the patient and recommend pain medication for pain control other than that no further surgery. I am going to discharge him home. Advised him to follow up with primary care physician 1-2 weeks. Follow up with GI specialist and surgeon per schedule. Activity as tolerated. Diet per home diet. Recommend carb controlled diet. Follow up with primary care physician as stated above. Follow up with GI specialist per schedule. Physical exam: HEENT: Normocephalic atraumatic pupils equal react to light and accommodation. Extraocular muscles intact, conjunctiva pink, oropharynx moist, no thrush, no exudate. Lymphatic: No lymphadenopathy Cardiovascular exam: S1, S2 was heard. No murmurs, rubs, gallops Lung: Clear on auscultation bilaterally, no wheeze, rale, rhonchi. GI: Abdominal soft, nondistended, nontenderness, positive bowel sounds. Extremity: No crepitus, cyanosis, edema. Pedal pulses present bilateral. Full range of motion. Skin: Normal turgor, no rash. Psych: Alert, oriented x3. Neurology: No focal deficits, cranial nerve II to XII grossly intact. Condition at Discharge: Stable Final Diagnosis/Problems List Abdominal pain due to ventral hernia repair Diabetes type 2 Hypertension Hyperlipidemia History of DVT/PE History of ventral hernia repair Discharge Disposition: Home Discharge Instruct/Medications Diet: Cardiac 2g Na,low cholest Activity: No Restrictions, As Tolerated Follow Up/Referral: pcp 1-2 weeks Medications: see med list Scheduled Apixaban Base (Eliquis), 5 MG PO BID Apixaban Base (Eliquis), 10 MG PO BID Atorvastatin Calcium (Lipitor), 1 TAB PO DAILY Cephalexin (Keflex Capsule), 2 CAP PO QID Docusate Sodium (Colace), 1 CAP PO BID Metoprolol Tartrate (Metoprolol Tartrate), 0.5 TAB PO BID Semaglutide (Ozempic), Unknown Dose SC QWEEKLY, (Reported) Scheduled PRN Polyethylene Glycol 3350 (Miralax), 17 GM PO DAILY PRN Miscellaneous Medications Fenofibrate (Fenofibrate), (Reported) Losartan Potassium (Losartan Potassium), (Reported) Metformin Hydrochloride (Metformin Hcl), (Reported) Discharge Statement: "Patient was advised to return to the ER or call 911 if any headaches, dizziness, shortness of breath, chest pain, abdominal pain, bleeding, fevers, or worsening of medical condition. Patient was counseled about treatment plan, medications, possible side effects, patientverbalized understanding. All questions were answered to the best of my ability. This discharge took greater then 30 minutes in planning, reviewing documentation, counseling the patient, and discussing with other team members." ASSESSMENT ASSESSMENT Assessment Abdominal pain Date of Service: Sep 05, 2025 Billing Provider: MIREYA BETTENCOURT MD Common Visit Codes: 85412-EHV/OBS DISCH DAY >30min MIREYA BETTENCOURT MD Sep 05, 2025 14:52
[2025-09-05] MEDS ORDERED: DOCU-94 PO (15:57)
[2025-09-05] MEDS ORDERED: POLY335015 PO (15:57)
[2025-09-05 16:39] VITALS: BP 149/82; PULSE 75; RESP 20; TEMP 98.2; O2SAT 97
== END 2025-09-05 17:30 | disposition home or self-care (01) ==
LOC: SUR 07:56 → OVERFLOW 12:54 → WEST WING 18:48
PROVIDERS: ADMIT Internal Medicine; ATTEND Internal Medicine
DX: K43.9 Ventral hernia without obstruction or gangrene (principal); K43.2 Incisional hernia without obstruction or gangrene; K43.5 Parastomal hernia without obstruction or gangrene; R53.1 Weakness; E11.9 Type 2 diabetes mellitus without complications; E78.5 Hyperlipidemia, unspecified; I10 Essential (primary) hypertension; Z86.711 Personal history of pulmonary embolism; Z86.718 Personal history of other venous thrombosis and embolism; Z79.899 Other long term (current) drug therapy; Z98.890 Other specified postprocedural states
CPT/HCPCS: 36415; 49593; 80053; 81001; 82962; 83036; 85025; 85610; 85730; 86850; 86900; 86901; 96365; 96366; 96372; A4315; C1781; G0378; J0690; J0696; J1100; J1650; J1815; J1885; J2003; J2371; J2405; J2704; J3490; J0131